=== PATIENT | female | born 1980 | race Caucasian/White ===

== ENCOUNTER 2016-05-11 15:54 | Emergency (ER) | payer MEDICAID ==
[~2016-05-11] VITALS: Ht 152.4 cm; Wt 75.0 kg
[~2016-05-11 15:54] MED LIST: AMOX500C PO
[2016-05-11 15:58] VITALS: BP 139/86; PULSE 101; RESP 16; TEMP 98.7; O2SAT 100
--- NOTE | 2016-05-11 16:09 | PD ---
HPI Chief Complaint: Complaint Time Seen by Provider: 16:07 Travel History International Travel<30 days: No Contact w/Intl Traveler<30days: No Traveled to known affect area: No History of Present Illness HPI 36-year-old female presents to the emergency department for evaluation of urinary frequency, urgency, dysuria for one week. She denies any fevers or chills. No nausea or vomiting. She does report some low back pain. She denies any abnormal vaginal discharge. She has no chronic medical problems and takes no medications. She denies . She reports history of 3 and cholecystectomy. PFSH Past Medical History Arthritis: No Blood Disorders: No Anxiety: No Depression: No Cancer: No Cardiovascular Problems: No Cerebrovascular Accident: No Diabetes: No Diminished Hearing: No Endocrine: No Gastrointestinal Disorders: Yes Genitourinary: Yes (frequent uti) Immune Disorder: No Implanted Vascular Access Dvce: No Musculoskeletal: No Neurologic: No Psychiatric: No Reproductive: No Respiratory: No Immunizations Current: Yes Migraines: Yes Thyroid Disease: No ?: Not LMP: 04/23/16 : 6 Para: 3 Miscarriage: 2 : 1 Ovarian Cysts: Yes Tubal Ligation: Yes (RT TUBE ONLY/LEFT NON EXISTANT) Past Surgical History AICD: No Arteriovenous Shunt: No Cardiac Surgery: No Section: Yes (X3) Cholecystectomy: Yes Ear Surgery: No Endocrine Surgery: No Eye Surgery: No Genitourinary Surgery: No Gynecologic Surgery: Yes (3 C-- SECTIONS) Insulin Pump: No Joint Replacement: No Neurologic Surgery: No Oral Surgery: No Thoracic Surgery: No Other Surgery: Yes ( TUBAL GALLBLADDER) Social History Alcohol Use: Yes (social) Tobacco Use: Yes (04/23 ppd) Substance Use: No Allergies-Medications (Allergen,Severity, Reaction): Coded Allergies: No Known Allergies (Unverified , 05/11/16) Reported Meds & Prescriptions Reported Meds & Active Scripts Active No Active Prescriptions or Reported Medications Review of Systems Except as stated in HPI: all other systems reviewed are Neg Physical Exam Narrative GENERAL: Well-developed well-nourished female patient, ambulatory. Afebrile. SKIN: Warm and dry. HEAD: Normocephalic. Atraumatic. EYES: No scleral icterus. No injection or drainage. NECK: Supple, trachea midline. No JVD or lymphadenopathy. CARDIOVASCULAR: Regular rate and rhythm without murmurs, gallops, or rubs. RESPIRATORY: Breath sounds equal bilaterally. No accessory muscle use. Lungs sounds clear to auscultation. GASTROINTESTINAL: Abdomen soft, non-tender, nondistended. MUSCULOSKELETAL: No cyanosis, or edema. BACK: Nontender without obvious deformity. No CVA tenderness. Data Data Last Documented VS Vital Signs Date Time Temp Pulse Resp B/P Pulse Ox O2 Delivery O2 Flow Rate FiO2 05/11/16 15:58 98.7 101 16 139/86 100 Orders Urinalysis - C+S If Indicated (05/11/16 15:58) Ed Urine Pregnancytest Poc (05/11/16 15:58) Urine Culture (05/11/16 16:05) Labs Laboratory Tests Test 05/11/16 16:05 Urine Collection Type CLEAN CATCH Urine Color YELLOW Urine Turbidity MOD Urine pH 6.0 Urine Specific [place] 1.019 Urine Protein TRACE mg/dL Urine Glucose (UA) NEG mg/dL Urine Ketones NEG mg/dL Urine Occult Blood SMALL Urine Nitrite NEG Urine Bilirubin NEG Urine Leukocyte Esterase LARGE Urine RBC 20-24 /hpf Urine WBC INNUM /hpf Urine WBC Clumps MANY Urine Squamous Epithelial > 8 /hpf Cells Urine Bacteria FEW /hpf Microscopic Urinalysis Comment CULTURE INDICATED Urine Collection Time 16:05 [facility] Medical Decision Making Medical Screen Exam Complete: Yes Emergency Medical Condition: Yes Medical Record Reviewed: Yes Differential Diagnosis UTI versus how nephritis versus dysuria Narrative Course 36-year-old female presents to the emergency department for evaluation of possible urinary tract infection. Urine test is negative. UA is ordered and pending. UA shows small occult blood, large leukocyte esterase, innumerable WBCs, many WBC clumps. Patient will be discharged prescription for Macrobid and Pyridium. She is encouraged to follow up with her primary care physician. Patient verbalized agreement and understanding. Diagnosis Primary Impression: Urinary tract infection Qualified Code: N30.01 - Acute cystitis with hematuria Referrals: Primary Care Physician call for appointment Patient Instructions: General Instructions, Urinary Tract Infection in Women ( ED) Additional Instructions: Drink plenty of water. Take Macrobid as directed until gone. Take Pyridium as directed as needed. Follow-up with your primary care physician. Return to the emergency department for any acute worsening of symptoms. Med/Other Pt SpecificInfo: Prescription(s) given Scripts Phenazopyridine (Pyridium)200 Mg [id number] Mg PO Q8H PRN (DYSURIA) 12 Days Ref 0 Prov:Kenyatta Hawkins 05/11/16 Nitrofurantoin Monohydrate Macrocrystals (Macrobid)100 Mg [id number] Mg PO BID 7 Days Ref 0 Prov:Kenyatta Hawkins 05/11/16 Disposition: 01 DISCHARGE HOME Condition: Stable Kenyatta Hawkins May 11, 2016 16:09
[2016-05-11 16:11] LABS: BLOOD, URINE SMALL (NEG); GLUCOSE,URINE NEG (NEG); KETONE, URINE NEG (NEG); NITRITE,URINE NEG (NEG)
[2016-05-11 16:17] LABS: METHOD OF COLLECTION CLEAN CATCH; URINE COLOR YELLOW (YELLW/STRAW)
[2016-05-11 16:18] LABS: BACTERIA, URINE FEW /hpf; SQUAMOUS EPITHELIAL CELL URINE > 8 /hpf (0-5); WBC, URINE INNUM /hpf (0-5)
[2016-05-11 16:19] LABS: COMMENT (UR) CULTURE INDICATED; CULTURE IF INDICATED CULTURE INDICATED
[2016-05-11] MEDS ORDERED: MACR100C2 PO (16:23)
[2016-05-11] MEDS ORDERED: PYRI200T4 PO (16:23)
== END 2016-05-11 16:30 | disposition home or self-care (01) ==
LOC: PHEFT 15:54
DX: N39.0 Urinary tract infection, site not specified (principal); B96.20 Unspecified Escherichia coli [E. coli] as the cause of diseases classified elsewhere
CPT/HCPCS: 81001; 84703; 87077; 87086; 87186; 99283

== ENCOUNTER 2016-05-19 17:15 | Emergency (ER) | payer MEDICAID ==
[~2016-05-19] VITALS: Ht 152.4 cm; Wt 76.4 kg
[~2016-05-19 17:15] MED LIST changes: -AMOX500C PO; +MACR100C2 PO; +PYRI200T4 PO
[2016-05-19 17:19] VITALS: BP 131/85; PULSE 123; RESP 16; TEMP 97.3; O2SAT 97
[2016-05-19] MEDS ORDERED: KETOROLAC TROMETHAMINE 30 MG/ML (IVP) VIAL IV PUSH ONE (17:45)
[2016-05-19] MEDS ORDERED: AMPICILLIN-SULBACTAM INJ 1,500 MG in SODIUM CHLORIDE 0.9% INJ 100 ML IV ONE (17:45)
[2016-05-19] MEDS ORDERED: SODIUM CHLORIDE 0.9% FLUSH 5 ML FLUSH IVF PRN (17:45)
[2016-05-19] MEDS ORDERED: DEXAMETHASONE SOD PHOS 4 MG/ML VIAL IV ONE (17:45)
--- NOTE | 2016-05-19 17:54 | PD ---
HPI Chief Complaint: ENT Complaint Time Seen by Provider: 17:47 Travel History International Travel<30 days: No Contact w/Intl Traveler<30days: No Traveled to known affect area: No History of Present Illness HPI 36-year-old female presents to the emergency room for evaluation of severe sore throat for the past few days that worsened last night. Patient states it became difficult to swallow secondary to pain and swelling last night. She has history of strep throat but states this feels worse. Pain is more severe on the right and she has associated right sided neck swelling. She reports a fever of 101 3 days ago. She has been taking 800 mg ibuprofen "around-the- clock" for the past 3 days and has not had recurrence of fever. She has nausea and decreased appetite but no vomiting. Reports very mild associated cough. Denies any other upper respiratory symptoms. No chronic medical conditions or daily medications. Denies possibility of STD. PFSH Past Medical History Arthritis: No Blood Disorders: No Anxiety: No Depression: No Cancer: No Cardiovascular Problems: No Cerebrovascular Accident: No Diabetes: No Diminished Hearing: No Endocrine: No Gastrointestinal Disorders: Yes Genitourinary: Yes (frequent uti) Immune Disorder: No Implanted Vascular Access Dvce: No Musculoskeletal: No Neurologic: No Psychiatric: No Reproductive: No Respiratory: No Immunizations Current: Yes Migraines: Yes Thyroid Disease: No Tetanus Vaccination: > 5 Years Influenza Vaccination: No ?: Not LMP: 04/23/16 : 6 Para: 3 Miscarriage: 2 : 1 Ovarian Cysts: Yes Tubal Ligation: Yes (RT TUBE ONLY/LEFT NON EXISTANT) Past Surgical History AICD: No Arteriovenous Shunt: No Cardiac Surgery: No Section: Yes (X3) Cholecystectomy: Yes Ear Surgery: No Endocrine Surgery: No Eye Surgery: No Genitourinary Surgery: No Gynecologic Surgery: Yes (3 C-- SECTIONS) Insulin Pump: No Joint Replacement: No Neurologic Surgery: No Oral Surgery: No Thoracic Surgery: No Other Surgery: Yes ( TUBAL GALLBLADDER) Social History Alcohol Use: Yes (social) Tobacco Use: Yes (/ ppd) Substance Use: No Allergies-Medications (Allergen,Severity, Reaction): Coded Allergies: No Known Allergies (Unverified , 05/19/16) Reported Meds & Prescriptions Reported Meds & Active Scripts Active Hydrocodone-Acetaminophen Liq 7.5-325 Mg/15 Ml Soln 15 Ml PO Q6H PRN Augmentin (Amoxicillin-Clavulanate) 875-125 mg Tab 875 Mg PO BID 10 Days not for use in CrCl <30 ml/min. Medrol Dosepak (Methylprednisolone) 4 Mg Dspk 4 Mg PO DIRECTED Per Pharmacist direction Pyridium (Phenazopyridine HCl) 200 Mg Tab 200 Mg PO Q8H PRN 12 Days Macrobid (Nitrofurantoin Monoh/Nitrofur Macro) 100 Mg Cap 100 Mg PO BID 7 Days Review of Systems Except as stated in HPI: all other systems reviewed are Neg Physical Exam Narrative GENERAL: Well-nourished, well-developed female in no acute distress. Afebrile. Ambulatory. SKIN: Warm and dry. HEAD: Normocephalic. EYES: No scleral icterus. No injection or drainage. NECK: Supple, trachea midline. No JVD or lymphadenopathy. ENT: Mucosa pink and moist. Mild to moderate erythema without exudates. Right tonsil is markedly more swollen than left; 3+ as compared to 1+. No uvular edema. No uvular, palatal, or tonsillar deviation. Airway patent. Data Data Last Documented VS Vital Signs Date Time Temp Pulse Resp B/P Pulse Ox O2 Delivery O2 Flow Rate FiO2 05/19/16 20:17 98 18 131/71 98 Room Air 05/19/16 17:19 97.3 Orders Basic Metabolic Panel (Bmp) (05/19/16 17:39) Complete Blood Count With Diff (05/19/16 17:39) Group A Rapid Strep Screen (05/19/16 17:39) Dexamethasone Inj (Decadron Inj) (05/19/16 17:45) Sodium Chloride 0.9% Flush (Ns Flush) (05/19/16 17:45) Ed Urine Pregnancytest Poc (05/19/16 17:39) Ampicillin-Sulbactam Inj (Unasyn Inj) (05/19/16 17:45) Ketorolac Inj (Toradol Inj) (05/19/16 17:45) Ct Soft Tiss Neck W Iv Cont (05/19/16 17:50) Blood Culture (05/19/16 18:09) Strep Culture (Group A) (05/19/16 17:50) Lactic Acid (1/29/17 18:16) Morphine Inj (Morphine Inj) (05/19/16 18:45) Acetamin-Hydrocod 325-7.5 Liq (Hycet 325 (05/19/16 20:00) Mandatory Outpatient Referral (05/19/16 20:20) Labs Laboratory Tests Test 05/19/16 05/19/16 17:50 18:15 White Blood Count 17.0 TH/MM3 Red Blood Count 4.18 MIL/MM3 Hemoglobin 13.2 GM/DL Hematocrit 38.6 % Mean Corpuscular Volume 92.2 FL Mean Corpuscular Hemoglobin 31.5 PG Mean Corpuscular Hemoglobin 34.1 % Concent Red Cell Distribution Width 12.2 % Platelet Count 319 TH/MM3 Mean Platelet Volume 7.6 FL Neutrophils (%) (Auto) 88.2 % Lymphocytes (%) (Auto) 6.7 % Monocytes (%) (Auto) 4.3 % Eosinophils (%) (Auto) 0.6 % Basophils (%) (Auto) 0.2 % Neutrophils # (Auto) 15.1 TH/MM3 Lymphocytes # (Auto) 1.1 TH/MM3 Monocytes # (Auto) 0.7 TH/MM3 Eosinophils # (Auto) 0.1 TH/MM3 Basophils # (Auto) 0.0 TH/MM3 CBC Comment DIFF FINAL Differential Comment Sodium Level 141 MEQ/L Potassium Level 3.6 MEQ/L Chloride Level 106 MEQ/L Carbon Dioxide Level 25.0 MEQ/L Anion Gap 10 MEQ/L Blood Urea Nitrogen 9 MG/DL Creatinine 0.60 MG/DL Estimat Glomerular Filtration 114 ML/MIN Rate Random Glucose 84 MG/DL Calcium Level 8.4 MG/DL Lactic Acid Level 0.8 mmol/L [facility] Medical Decision Making Medical Screen Exam Complete: Yes Emergency Medical Condition: Yes Medical Record Reviewed: Yes Differential Diagnosis Strep throat versus viral pharyngitis versus peritonsillar abscess Narrative Course 36-year-old female presents to the emergency room for evaluation of severe sore throat for the past day. Patient reports associated right-sided neck pain and edema. Physical exam reveals mild to moderate erythema without exudates. Right tonsil is markedly more swollen than left; 3+ as compared to 1+. No uvular or tonsillar deviation. Airway patent. Vital signs stable. She is handling her secretions and lying back without difficulty breathing. IV access established. Rapid strep is negative. CBC shows white count 17,000. BMP is unremarkable. Lactic acid is 0.8. Based on heart rate and elevated white count , patient meets sepsis criteria. Lactic acid and blood cultures drawn prior to onset of antibiotics. Patient given IV Toradol, Decadron, and Unasyn. Patient reports no pain relief from Toradol or Decadron. She was then given morphine. Morphine began to wear off, patient was given liquid Lortab. Her heart rate improved from 120s to 90s which is normal/baseline for patient according to EMR. CT of the neck shows a large mass with differential including primary oral pharyngeal malignancy, lymphoma, abscess, or other inflammatory/infectious process. I spoke to the on-call ENT, Dr. Carter, who was made aware of patient' s history and physical exam. He stated if she appears well, she can be discharged with prescriptions for Medrol Dosepak, Augmentin, and follow-up in his office this week. Patient was discharged with those prescriptions and liquid Lortab. Given his office information and encouraged to make an appointment tomorrow morning. Patient states she has Medicaid and believes she will have difficulty obtaining appointments a mandatory outpatient referral was placed. He understands and agrees to plan. Sepsis Criteria SIRS Criteria (2 or more): Heart rate over 90, WBC > 47868, < 4000 or > 10% bands Sepsis Criteria (SIRS+source): Infect source susp/known Diagnosis Primary Impression: Peritonsillar abscess Referrals: Yogesh Carter MD Patient Instructions: General Instructions, Peritonsillar Abscess (ED) Additional Instructions: Rest and drink plenty of fluids. Take Medrol Dosepak as directed, until gone. Take Augmentin as directed, until gone. Take Lortab with food as directed, as needed for pain. To not drink alcohol or travel taking this medication. Follow-up with Dr. Carter. Return to the emergency room for worsening symptoms. Med/Other Pt SpecificInfo: Prescription(s) given Scripts Hydrocodone-Acetaminophen Liq 7.5-325 Mg/15 Ml Soln15 Ml PO Q6H PRN (PAIN) #225 ML Ref 0 Prov:Lindsey Rick MD 05/19/16 Amoxicillin-Clavulanate (Augmentin)875-125 mg [id number] Mg PO BID 10 Days Ref 0 not for use in CrCl <30 ml/min. Prov:Desiree Francis DO 05/19/16 Methylprednisolone Dosepak (Medrol Dosepak)4 Mg Dspk4 Mg PO DIRECTED #1 DSPK Ref 0 Per Pharmacist direction Prov:Desiree Francis DO 05/19/16 Disposition: 01 DISCHARGE HOME Condition: Stable Esperanza Monroe May 19, 2016 17:53
[2016-05-19 18:02] LABS: AUTOMATED NEUTROPHIL # 15.1 TH/MM3 (1.8-7.7); BASOPHIL % 0.2 % (0.0-2.0); EOSINOPHIL # 0.1 TH/MM3 (0-0.4); EOSINOPHIL % 0.6 % (0.0-4.0); HEMATOCRIT 38.6 % (35.0-46.0); LYMPH % 6.7 % (9.0-44.0); LYMPHOCYTE # 1.1 TH/MM3 (1.0-4.8); MEAN CELL VOLUME 92.2 FL (80.0-100.0); MEAN CORPUSCULAR HEMOGLOBIN 31.5 PG (27.0-34.0); MEAN CORPUSCULAR HGB CONC 34.1 % (32.0-36.0); MONO % 4.3 % (0.0-8.0); NEUT % 88.2 % (16.0-70.0); PLATELET COUNT 319 TH/MM3 (150-450); RED BLOOD COUNT 4.18 MIL/MM3 (4.00-5.30); RED CELL DISTRIBUTION WIDTH 12.2 % (11.6-17.2)
[2016-05-19 18:03] LABS: HEMO FLAGS DIFF FINAL
[2016-05-19 18:09] LABS: POTASSIUM 3.6 MEQ/L (3.5-5.1)
[2016-05-19 18:26] VITALS: BP 120/78; PULSE 99; RESP 18; O2SAT 99
[2016-05-19] MEDS ORDERED: MORPHINE SULFATE 4 MG/ML INJ IV PUSH ONE (18:45)
[2016-05-19] MEDS ORDERED: IOHEXOL 350 MG/ML 10 ML VIAL (for RAD DIAG) IV ONE (18:53)
[2016-05-19 19:15] VITALS: BP 105/57; PULSE 93; RESP 18; O2SAT 98
--- NOTE | 2016-05-19 19:27 | RADHPO ---
EXAM DATE/TIME: 05/19/2016 18:53 [facility] COMPARISON: No previous studies available for comparison. INDICATIONS : Right sided pain and swelling for three days IV CONTRAST: 70 cc Omnipaque 350 (iohexol) IV RADIATION DOSE: 14.30 CTDIvol (mGy) MEDICAL HISTORY : None SURGICAL HISTORY : Tubal ligation. ENCOUNTER: Initial ACUITY: 3 days PAIN SCALE: 6/10 LOCATION: Right neck TECHNIQUE: Volumetric scanning of the neck was performed. Using automated exposure control and adjustment of th e mA and/or kV according to patient size, radiation dose was kept as low as reasonably achievable to obtain optimal diagnostic quality images. FINDINGS: Examination is abnormal demonstrating a large mass involving the right nasopharynx and oropharynx, la rgest at the level of the tonsillar fossa/base of tongue measuring in access of 3.2 cm in oblique dim ension. Superior extent to the high lateral nasopharyngeal wall measures up to 2.2 cm in width. Inf eriorly, there is asymmetric thickening of the lateral hypopharyngeal wall down to the level of the v ocal cords. There is a central area of hypodensity at the level of the tonsillar fossa which measure s 1.4 cm. No internal gas is seen. There is a enlarged homogeneously enhancing mass/node at the level of the right angle of the mandible in the jugular chain measuring 2.1 cm. There are also multiple posterior triangle nodes, larger on the right than on the left with the largest right posterior triangle node measuring 1.0 cm and the la rgest on the left measuring 0.7 cm. Possible enlarged left jugular node measures 1.2 cm. The thyroid gland has an abnormal appearance with an irregular area of decreased density in the anter ior mid lobe on the right side measuring 1.2 cm in length and 5 mm in width. Homogeneous enhancement of the left lobe of the thyroid and in the isthmus. There is a rounded soft tissue density within the right maxillary sinus measuring 2.7 cm, possibly re presenting retention cyst or polyp. Examination was extended into the upper chest and no focal opacities seen in either pulmonary apex. Wide windows for bony detail demonstrate the osseous structures to be grossly intact. CONCLUSION: Large mass on the right side extending from nasopharynx to hypopharynx, largest at the level of the t onsillar fossa containing an inhomogeneous pattern of enhancement. The maximum axial dimension is 3. 2 cm, but the superior/inferior dimension would be greater than that. There is also at least one enl arged right jugular node and multiple bilateral prominent posterior triangle nodes. Differential con siderations would include a primary oral pharyngeal malignancy, lymphoma, abscess, and other infectio us/inflammatory process. Additional findings include polyp or cyst in the right maxillary sinus and irregular shaped mass in t he right lobe of the thyroid. Андрей Rust MD on May 19, 2016 at 19:16 Board Certified Radiologist. This report was verified electronically.
[2016-05-19] MEDS ORDERED: ACETAMINOPHEN 325MG/HYDROcodone 7.5MG/15ML UDC PO ONE (20:00)
[2016-05-19] MEDS ORDERED: MEDR4PAK PO (20:03)
[2016-05-19] MEDS ORDERED: AUGM875T PO (20:03)
[2016-05-19] MEDS ORDERED: HYDR1SOL3 PO (20:05)
[2016-05-19 20:17] VITALS: BP 131/71; PULSE 98; RESP 18; O2SAT 98
[2016-05-19 20:44] VITALS: RESP 18
== END 2016-05-19 20:45 | disposition home or self-care (01) ==
LOC: PHEFT 17:15
DX: J36 Peritonsillar abscess (principal); F17.200 Nicotine dependence, unspecified, uncomplicated
CPT/HCPCS: 70491; 80048; 83605; 84703; 85025; 87040; 87081; 87880; 96365; 96375; 99284; J0295; J1100; J1885; J2270; Q9967

== ENCOUNTER 2016-05-26 04:46 | Emergency (ER) | payer MEDICAID ==
[~2016-05-26] VITALS: Ht 152.4 cm; Wt 74.0 kg
[~2016-05-26 04:46] MED LIST changes: +AUGM875T PO; +HYDR1SOL3 PO; +MEDR4PAK PO
[2016-05-26 04:50] VITALS: BP 132/86; PULSE 82; RESP 20; TEMP 97.4; O2SAT 100
[2016-05-26] MEDS ORDERED: SODIUM CHLOR 0.9% 1000 ML INJ 1,000 ML IV SCH ×2 (05:17→05:30)
--- NOTE | 2016-05-26 05:17 | PD ---
HPI Chief Complaint: GI Complaint Time Seen by Provider: 05:05 Travel History International Travel<30 days: No Contact w/Intl Traveler<30days: No Traveled to known affect area: No History of Present Illness HPI The patient is a 36-year-old female, frequent visitor to emergency department, who complains of nausea, vomiting and diarrhea and epigastric pain since 9 PM tonight. She has already had a cholecystectomy as well as the tubal ligation. She still has her appendix. She denies any fever. She denies any blood in the stool or vomitus. He has not undergone any recent foreign travel and denies well water ingestion, recent antibiotics, exposure to anyone with similar symptoms or history of bowel problems like regional enteritis or ulcerative colitis. The patient was apparently admitted on 2014 for a similar episode in which she had some dilatation of the jejunum but this resolved spontaneously. She states it feels similar to that episode. PFSH Past Medical History Arthritis: No Blood Disorders: No Anxiety: No Depression: No Cancer: No Cardiovascular Problems: No Cerebrovascular Accident: No Diabetes: No Diminished Hearing: No Endocrine: No Gastrointestinal Disorders: Yes Genitourinary: Yes (frequent uti) Immune Disorder: No Implanted Vascular Access Dvce: No Musculoskeletal: No Neurologic: No Psychiatric: No Reproductive: No Respiratory: No Immunizations Current: Yes Migraines: Yes Thyroid Disease: No Influenza Vaccination: No ?: Not LMP: May 21 : 6 Para: 3 Miscarriage: 2 : 1 Ovarian Cysts: Yes Tubal Ligation: Yes (RT TUBE ONLY/LEFT NON EXISTANT) Past Surgical History AICD: No Arteriovenous Shunt: No Cardiac Surgery: No Section: Yes (X3) Cholecystectomy: Yes Ear Surgery: No Endocrine Surgery: No Eye Surgery: No Genitourinary Surgery: No Gynecologic Surgery: Yes (3 C-- SECTIONS) Insulin Pump: No Joint Replacement: No Neurologic Surgery: No Oral Surgery: No Thoracic Surgery: No Other Surgery: Yes ( TUBAL GALLBLADDER) Social History Alcohol Use: Yes (social) Tobacco Use: Yes (1/3 ppd) Substance Use: No Allergies-Medications (Allergen,Severity, Reaction): Coded Allergies: No Known Allergies (Unverified , 05/26/16) Reported Meds & Prescriptions Reported Meds & Active Scripts Active No Active Prescriptions or Reported Medications Review of Systems Except as stated in HPI: all other systems reviewed are Neg Physical Exam Narrative GENERAL: The patient is alert, oriented 3, moderately dehydrated and moderate apparent distress with her midline epigastric pain. Her vital signs are normal. SKIN: Warm and dry. HEAD: Atraumatic. Normocephalic. EYES: Pupils equal and round. No scleral icterus. No injection or drainage. ENT: No nasal bleeding or discharge. Mucous membranes pink and moist. NECK: Trachea midline. No JVD. CARDIOVASCULAR: Regular rate and rhythm. No murmur appreciated. RESPIRATORY: No accessory muscle use. Clear to auscultation. Breath sounds equal bilaterally. GASTROINTESTINAL: Abdomen soft, with tenderness to direct palpation in the midline epigastrium, nondistended. Hepatic and splenic margins not palpable. No guarding or rebound is present. MUSCULOSKELETAL: No obvious deformities. No clubbing. No cyanosis. No edema. NEUROLOGICAL: Awake and alert. No obvious cranial nerve deficits. Motor grossly within normal limits. Normal speech. PSYCHIATRIC: Appropriate mood and affect; insight and judgment normal. Data Data Last Documented VS Vital Signs Date Time Temp Pulse Resp B/P Pulse Ox O2 Delivery O2 Flow Rate FiO2 05/26/16 06:15 82 16 126/69 98 Room Air 05/26/16 04:50 97.4 Orders Complete Blood Count With Diff (05/26/16 05:17) Comprehensive Metabolic Panel (05/26/16 05:17) Lipase (05/26/16 05:17) Urinalysis - C+S If Indicated (05/26/16 05:17) Iv Access Insert/Monitor (05/26/16 05:17) Ecg Monitoring (05/26/16 05:17) Oximetry (05/26/16 05:17) Pantoprazole Inj (Protonix Inj) (05/26/16 05:30) Sodium Chlor 0.9% 1000 Ml Inj (Ns 1000 M (05/26/16 05:17) Sodium Chloride 0.9% Flush (Ns Flush) (05/26/16 05:30) Famotidine Inj (Pepcid Inj) (05/26/16 05:30) Al-Mag Hy-Si 40-40-4 Mg/Ml Liq (Mag-Al P (05/26/16 05:30) Lidocaine 2% Viscous (Xylocaine 2% Visco (05/26/16 05:30) Ondansetron Inj (Zofran Inj) (2/5/17 05:30) Sodium Chlor 0.9% 1000 Ml Inj (Ns 1000 M (05/26/16 05:30) Ketorolac Inj (Toradol Inj) (05/26/16 05:45) Ondansetron Inj (Zofran Inj) (05/26/16 05:45) Ct Abd/Pel W Iv Contrast(Rout) (05/26/16 05:56) Morphine Inj (Morphine Inj) (05/26/16 06:00) Sodium Chloride 0.9% Flush (Ns Flush) (05/26/16 06:00) Beta Hcg (Quant/Titer) (05/26/16 05:30) Metoclopramide Inj (Reglan Inj) (05/26/16 06:30) Labs Laboratory Tests Test 05/26/16 05/26/16 05:30 06:00 White Blood Count 29.1 TH/MM3 Red Blood Count 4.80 MIL/MM3 Hemoglobin 15.1 GM/DL Hematocrit 44.2 % Mean Corpuscular Volume 91.9 FL Mean Corpuscular Hemoglobin 31.3 PG Mean Corpuscular Hemoglobin 34.1 % Concent Red Cell Distribution Width 12.4 % Platelet Count 590 TH/MM3 Mean Platelet Volume 7.9 FL Neutrophils (%) (Auto) 77.4 % Lymphocytes (%) (Auto) 17.0 % Monocytes (%) (Auto) 4.5 % Eosinophils (%) (Auto) 0.7 % Basophils (%) (Auto) 0.4 % Neutrophils # (Auto) 22.6 TH/MM3 Lymphocytes # (Auto) 4.9 TH/MM3 Monocytes # (Auto) 1.3 TH/MM3 Eosinophils # (Auto) 0.2 TH/MM3 Basophils # (Auto) 0.1 TH/MM3 CBC Comment DIFF FINAL Differential Comment Sodium Level 143 MEQ/L Potassium Level 3.1 MEQ/L Chloride Level 105 MEQ/L Carbon Dioxide Level 27.0 MEQ/L Anion Gap 11 MEQ/L Blood Urea Nitrogen 13 MG/DL Creatinine 0.77 MG/DL Estimat Glomerular Filtration 86 ML/MIN Rate Random Glucose 97 MG/DL Calcium Level 9.1 MG/DL Total Bilirubin 0.4 MG/DL Aspartate Amino Transf 9 U/L (AST/SGOT) Alanine Aminotransferase 18 U/L (ALT/SGPT) Alkaline Phosphatase 70 U/L Total Protein 8.6 GM/DL Albumin 3.9 GM/DL Lipase 111 U/L Human Chorionic Gonadotropin, LESS THAN 1 Quant MIU/ML Urine Collection Type VOIDED Urine Color YELLOW Urine Turbidity SLIGHT Urine pH 6.0 Urine Specific [place] 1.026 Urine Protein 30 mg/dL Urine Glucose (UA) NEG mg/dL Urine Ketones NEG mg/dL Urine Occult Blood LARGE Urine Nitrite NEG Urine Bilirubin NEG Urine Leukocyte Esterase NEG Urine WBC 0-2 /hpf Urine Squamous Epithelial >8 /hpf Cells Urine Amorphous Sediment FEW Urine Bacteria FEW /hpf Urine Mucus MOD /lpf Microscopic Urinalysis Comment CULT NOT INDICATED MDM Medical Decision Making Medical Screen Exam Complete: Yes Emergency Medical Condition: Yes Medical Record Reviewed: Yes Differential Diagnosis Viral gastroenteritis, gastritis, dehydration, electrolyte disorder, renal insufficiency, hypo-/hyperglycemia Narrative Course The patient continued to vomit multiple times despite 8 mg total of Zofran and 10 mg of Reglan IV. She is currently in CAT scan. It is now 0700 and the patient is transferred to Dr. Grajeda. Scripts No Active Prescriptions or Reported Meds Garrick Light MD May 26, 2016 05:16
[2016-05-26] MEDS ORDERED: ONDANSETRON HCL 4 MG/2 ML VIAL IV ONE ×2 (05:30→05:45)
[2016-05-26] MEDS ORDERED: SODIUM CHLORIDE 0.9% FLUSH 5 ML FLUSH IVF PRN ×2 (05:30→06:00)
[2016-05-26] MEDS ORDERED: ALUMINUM/MAGNESIUM/SIMETH 30 ML CUP PO ONE (05:30)
[2016-05-26] MEDS ORDERED: LIDOCAINE VISCOUS 2% SOLN 15 ML UDC PO ONE (05:30)
[2016-05-26] MEDS ORDERED: FAMOTIDINE 20 MG/2 ML VIAL IV PUSH ONE (05:30)
[2016-05-26] MEDS ORDERED: PANTOPRAZOLE SODIUM 40 MG VIAL IVP ONE (05:30)
[2016-05-26 05:44] LABS: AUTOMATED NEUTROPHIL # 22.6 TH/MM3 (1.8-7.7); BASOPHIL # 0.1 TH/MM3 (0-0.2); BASOPHIL % 0.4 % (0.0-2.0); EOSINOPHIL # 0.2 TH/MM3 (0-0.4); EOSINOPHIL % 0.7 % (0.0-4.0); HEMATOCRIT 44.2 % (35.0-46.0); LYMPHOCYTE # 4.9 TH/MM3 (1.0-4.8); MEAN CELL VOLUME 91.9 FL (80.0-100.0); MEAN CORPUSCULAR HEMOGLOBIN 31.3 PG (27.0-34.0); MEAN CORPUSCULAR HGB CONC 34.1 % (32.0-36.0); MONO % 4.5 % (0.0-8.0); NEUT % 77.4 % (16.0-70.0); PLATELET COUNT 590 TH/MM3 (150-450); RED CELL DISTRIBUTION WIDTH 12.4 % (11.6-17.2); WHITE BLOOD COUNT 29.1 TH/MM3 (4.0-11.0)
[2016-05-26 05:45] LABS: HEMO FLAGS DIFF FINAL
[2016-05-26] MEDS ORDERED: KETOROLAC TROMETHAMINE 60 MG/2 ML (IM) VIAL IVP ONE (05:45)
[2016-05-26 05:53] LABS: CHLORIDE 105 MEQ/L (98-107); POTASSIUM 3.1 MEQ/L (3.5-5.1); SODIUM (NA) 143 MEQ/L (136-145)
[2016-05-26 05:57] LABS: ANION GAP 11 MEQ/L (5-15); BLOOD UREA NITROGEN 13 MG/DL (7-18)
[2016-05-26 05:59] LABS: ALT (GPT) 18 U/L (10-53); AST (GOT) 9 U/L (15-37)
[2016-05-26 06:00] LABS: GLOMERULAR FILTRATION RATE 86 ML/MIN (>89)
[2016-05-26] MEDS ORDERED: MORPHINE SULFATE 4 MG/ML INJ IV PUSH ONE ×2 (06:00→08:15)
[2016-05-26 06:01] LABS: TOTAL BILIRUBIN ADULT 0.4 MG/DL (0.2-1.0)
[2016-05-26 06:02] LABS: ALKALINE PHOSPHATASE 70 U/L (45-117)
[2016-05-26 06:15] VITALS: BP 126/69; PULSE 82; RESP 16; O2SAT 98
[2016-05-26 06:16] LABS: BLOOD, URINE LARGE (NEG); GLUCOSE,URINE NEG (NEG); KETONE, URINE NEG (NEG); NITRITE,URINE NEG (NEG)
[2016-05-26 06:17] LABS: METHOD OF COLLECTION VOIDED; URINE COLOR YELLOW (YELLW/STRAW)
[2016-05-26 06:22] LABS: BETA HCG QUANT LESS THAN 1 MIU/ML (0-5)
[2016-05-26 06:22] LABS: MUCUS URINE MOD /lpf (OCC)
[2016-05-26 06:23] LABS: BACTERIA, URINE FEW /hpf; COMMENT (UR) CULT NOT INDICATED; CULTURE IF INDICATED CULT NOT INDICATED; SQUAMOUS EPITHELIAL CELL URINE >8 /hpf (0-5); WBC, URINE 0-2 /hpf (0-5)
[2016-05-26] MEDS ORDERED: METOCLOPRAMIDE HCL 10 MG/2 ML VIAL IVS ONE (06:30)
[2016-05-26] MEDS ORDERED: IOHEXOL 350 MG/ML 10 ML VIAL (for RAD DIAG) IV ONE (07:00)
[2016-05-26 07:05] VITALS: BP 111/63; PULSE 77; RESP 16; TEMP 98.8; O2SAT 99
--- NOTE | 2016-05-26 07:21 | RADHPO ---
EXAM DATE/TIME: 05/26/2016 06:46 [place] COMPARISON: CT ABDOMEN & PELVIS W CONTRAST, February 29, 2016, 22:28. INDICATIONS : Epigastric pain with nausea, vomiting, and diarrhea. IV CONTRAST: 96 cc Omnipaque 350 (iohexol) IV ORAL CONTRAST: No oral contrast ingested. RADIATION DOSE: 12.91 CTDIvol (mGy) MEDICAL HISTORY : Ovarian cysts. SURGICAL HISTORY : Tubal ligation. Cholecystectomy. ENCOUNTER: Initial ACUITY: 1 day PAIN SCALE: 7/10 LOCATION: Abdomen. TECHNIQUE: Volumetric scanning of the abdomen and pelvis was performed. Using automated exposure control and ad justment of the mA and/or kV according to patient size, radiation dose was kept as low as reasonably achievable to obtain optimal diagnostic quality images. FINDINGS: LOWER LUNGS: The visualized lower lungs are clear. LIVER: Homogeneous density without lesion. There is no dilation of the biliary tree. No calcified gallston es. SPLEEN: Normal size without lesion. PANCREAS: Within normal limits. KIDNEYS: Normal in size and shape. There is no mass, stone or hydronephrosis. Subcentimeter renal low densiti es are again noted. ADRENAL GLANDS: Within normal limits. VASCULAR: There is no aortic aneurysm. BOWEL/MESENTERY: Mild wall thickening of small bowel loops. No inflammatory changes or abscess. There is no free intra peritoneal air or fluid. ABDOMINAL WALL: Within normal limits. RETROPERITONEUM: There is no lymphadenopathy. BLADDER: No wall thickening or mass. REPRODUCTIVE: Trace pelvic free fluid INGUINAL: There is no lymphadenopathy or hernia. MUSCULOSKELETAL: Within normal limits for patient age. CONCLUSION: 1. Mild wall thickening involving small bowel loops possibly related to an enteritis. No inflammatory changes, abnormal fluid collection or abscess. 2. Status post cholecystectomy. 3. Trace pelvic free fluid likely physiologic. 4. Probable renal cysts. Artemio Meyer MD on May 26, 2016 at 7:17 Board Certified Radiologist. This report was verified electronically.
[2016-05-26] MEDS ORDERED: CIPR500T2 PO (07:59)
[2016-05-26] MEDS ORDERED: TRAM50TA PO (07:59)
[2016-05-26] MEDS ORDERED: METR-1 PO (08:00)
[2016-05-26] MEDS ORDERED: ZOFR4TAB3 SL (08:00)
--- NOTE | 2016-05-26 08:00 | PD ---
Data Data Last Documented VS Vital Signs Date Time Temp Pulse Resp B/P Pulse Ox O2 Delivery O2 Flow Rate FiO2 05/26/16 07:08 16 05/26/16 07:05 98.8 77 111/63 99 Room Air Orders Complete Blood Count With Diff (05/26/16 05:17) Comprehensive Metabolic Panel (05/26/16 05:17) Lipase (05/26/16 05:17) Urinalysis - C+S If Indicated (05/26/16 05:17) Iv Access Insert/Monitor (05/26/16 05:17) Ecg Monitoring (05/26/16 05:17) Oximetry (05/26/16 05:17) Pantoprazole Inj (Protonix Inj) (05/26/16 05:30) Sodium Chlor 0.9% 1000 Ml Inj (Ns 1000 M (05/26/16 05:17) Sodium Chloride 0.9% Flush (Ns Flush) (05/26/16 05:30) Famotidine Inj (Pepcid Inj) (05/26/16 05:30) Al-Mag Hy-Si 40-40-4 Mg/Ml Liq (Mag-Al P (05/26/16 05:30) Lidocaine 2% Viscous (Xylocaine 2% Visco (05/26/16 05:30) Ondansetron Inj (Zofran Inj) (05/26/16 05:30) Sodium Chlor 0.9% 1000 Ml Inj (Ns 1000 M (05/26/16 05:30) Ketorolac Inj (Toradol Inj) (05/26/16 05:45) Ondansetron Inj (Zofran Inj) (05/26/16 05:45) Ct Abd/Pel W Iv Contrast(Rout) (05/26/16 05:56) Morphine Inj (Morphine Inj) (05/26/16 06:00) Sodium Chloride 0.9% Flush (Ns Flush) (05/26/16 06:00) Beta Hcg (Quant/Titer) (05/26/16 05:30) Metoclopramide Inj (Reglan Inj) (05/26/16 06:30) Iohexol 350 Inj (Omnipaque 350 Inj) (05/26/16 07:00) Labs Laboratory Tests Test 2/5/17 2/5/17 05:30 06:00 White Blood Count 29.1 TH/MM3 Red Blood Count 4.80 MIL/MM3 Hemoglobin 15.1 GM/DL Hematocrit 44.2 % Mean Corpuscular Volume 91.9 FL Mean Corpuscular Hemoglobin 31.3 PG Mean Corpuscular Hemoglobin 34.1 % Concent Red Cell Distribution Width 12.4 % Platelet Count 590 TH/MM3 Mean Platelet Volume 7.9 FL Neutrophils (%) (Auto) 77.4 % Lymphocytes (%) (Auto) 17.0 % Monocytes (%) (Auto) 4.5 % Eosinophils (%) (Auto) 0.7 % Basophils (%) (Auto) 0.4 % Neutrophils # (Auto) 22.6 TH/MM3 Lymphocytes # (Auto) 4.9 TH/MM3 Monocytes # (Auto) 1.3 TH/MM3 Eosinophils # (Auto) 0.2 TH/MM3 Basophils # (Auto) 0.1 TH/MM3 CBC Comment DIFF FINAL Differential Comment Sodium Level 143 MEQ/L Potassium Level 3.1 MEQ/L Chloride Level 105 MEQ/L Carbon Dioxide Level 27.0 MEQ/L Anion Gap 11 MEQ/L Blood Urea Nitrogen 13 MG/DL Creatinine 0.77 MG/DL Estimat Glomerular Filtration 86 ML/MIN Rate Random Glucose 97 MG/DL Calcium Level 9.1 MG/DL Total Bilirubin 0.4 MG/DL Aspartate Amino Transf 9 U/L (AST/SGOT) Alanine Aminotransferase 18 U/L (ALT/SGPT) Alkaline Phosphatase 70 U/L Total Protein 8.6 GM/DL Albumin 3.9 GM/DL Lipase 111 U/L Human Chorionic Gonadotropin, LESS THAN 1 Quant MIU/ML Urine Collection Type VOIDED Urine Color YELLOW Urine Turbidity SLIGHT Urine pH 6.0 Urine Specific [place] 1.026 Urine Protein 30 mg/dL Urine Glucose (UA) NEG mg/dL Urine Ketones NEG mg/dL Urine Occult Blood LARGE Urine Nitrite NEG Urine Bilirubin NEG Urine Leukocyte Esterase NEG Urine WBC 0-2 /hpf Urine Squamous Epithelial >8 /hpf Cells Urine Amorphous Sediment FEW Urine Bacteria FEW /hpf Urine Mucus MOD /lpf Microscopic Urinalysis Comment CULT NOT INDICATED MDM Supervised Visit with RADHA: No Narrative Course This is a 36-year-old female who presents to the emergency department with abdominal pain, nausea and vomiting. She has come in with intermittent epigastric abdominal pain multiple times in the past. Back in 2014 she was admitted for nonspecific dilation of her jejunum. Today she has a leukocytosis and on CT scan has evidence of enteritis. She feels much better after hydration , pain control and antiemetics. She wants to go home. I think it's reasonable to discharge the patient with some antibiotics, pain control and antiemetics. I expressed to her how she needs to follow-up with gastroenterology. She's never had an endoscopy or colonoscopy. I suspect she may have undiagnosed Crohn 's disease. She says she's been told this by other physicians in the past. Patient expressed understanding. She'll be discharged home. Diagnosis Primary Impression: Enteritis Patient Instructions: General Instructions Additional Instruction: If you develop severe or worsening abdominal pain, fever>100.4, persistent vomiting or inability to eat or drink return to the emergency department immediately. It's very important that you follow-up with a petroleum production engineer as an outpatient. It's possible that you have an undiagnosed problem in your intestines and you may have Crohn's disease. Med/Other Pt SpecificInfo: Prescription(s) given Scripts Ondansetron Odt (Zofran Odt)4 Mg Tab4 Mg SL Q6HR PRN (Nausea/Vomiting) #15 TAB Prov:Sabrina Grajeda MD 05/26/16 Metronidazole (Flagyl)500 Mg [id number] Mg PO TID 10 Days Prov:Sabrina Grajeda MD 05/26/16 Ciprofloxacin 500 Mg Akt014 Mg PO BID 10 Days Prov:Sabrina Grajeda MD 05/26/16 Tramadol 50 Mg Tab50 Mg PO Q6H PRN (PAIN) #10 TAB Prov:Sabrina Grajeda MD 05/26/16 Disposition: 01 DISCHARGE HOME Condition: Stable Sabrina Grajeda MD May 26, 2016 08:00
[2016-05-26 08:54] VITALS: RESP 16
== END 2016-05-26 09:00 | disposition home or self-care (01) ==
LOC: PHED 04:46
DX: K52.9 Noninfective gastroenteritis and colitis, unspecified (principal); F17.210 Nicotine dependence, cigarettes, uncomplicated
CPT/HCPCS: 74177; 80053; 81001; 83690; 84702; 85025; 96360; 96361; 96374; 96375; 96376; 99284; C9113; J1885; J2270; J2405; J2765; J7030; Q9967

== ENCOUNTER 2016-06-13 11:47 | Emergency (ER) | payer MEDICAID ==
[~2016-06-13] VITALS: Ht 152.4 cm; Wt 86.5 kg
[~2016-06-13 11:47] MED LIST changes: -AUGM875T PO; +CIPR500T2 PO; -HYDR1SOL3 PO; -MACR100C2 PO; -MEDR4PAK PO; +METR-1 PO; -PYRI200T4 PO; +TRAM50TA PO; +ZOFR4TAB3 SL
[2016-06-13 12:20] VITALS: BP 109/70; PULSE 92; RESP 16; TEMP 98.2; O2SAT 98
[2016-06-13] MEDS ORDERED: TRAM50TA PO (12:44)
[2016-06-13] MEDS ORDERED: PENI500T PO (12:44)
[2016-06-13] MEDS ORDERED: NAPR500 PO (12:44)
--- NOTE | 2016-06-13 12:44 | PD ---
HPI Chief Complaint: Oral / Dental Pain or Problem Time Seen by Provider: 12:36 Travel History International Travel<30 days: No Contact w/Intl Traveler<30days: No Traveled to known affect area: No History of Present Illness HPI 36 year-old woman presents emergency department with her daughter who is being seen as a patient as well complaining of right sided dental pain. She has symptoms on and off of the right side of her mouth quite some time. Some worsening past several days. No fevers or chills. No purulent drainage. No other complaints. History Past Medical History Medical History: Denies Significant Hx : 6 Para: 3 Social History Alcohol Use: Yes (social) Tobacco Use: Yes (04/23 ppd) Allergies-Medications (Allergen,Severity, Reaction): Coded Allergies: No Known Allergies (Unverified , 06/13/16) Reported Meds & Prescriptions Reported Meds & Active Scripts Active Zofran Odt (Ondansetron Odt) 4 Mg Tab 4 Mg SL Q6HR PRN Flagyl (Metronidazole) 500 Mg Tab 500 Mg PO TID 10 Days Ciprofloxacin (Ciprofloxacin HCl) 500 Mg Tab 500 Mg PO BID 10 Days Tramadol (Tramadol HCl) 50 Mg Tab 50 Mg PO Q6H PRN Review of Systems Except as stated in HPI: all other systems reviewed are Neg Physical Exam Narrative Gen.: 36 year-old woman, no acute distress. HEENT: Poor dentition. Multiple areas of tenderness to percussion today upper and lower teeth on the right side. No fluctuance. No swelling. No purulent drainage. Data Data Last Documented VS Vital Signs Date Time Temp Pulse Resp B/P Pulse Ox O2 Delivery O2 Flow Rate FiO2 06/13/16 12:20 98.2 92 16 109/70 98 MDM Medical Decision Making Medical Screen Exam Complete: Yes Emergency Medical Condition: Yes Differential Diagnosis Odontalgia, abscess, other Narrative Course Medical decision making This a 36 year-old woman with multiple frequent ED visits, multiple pain prescriptions for the past year, presents with dental pain. No evidence of abscess. Needs outpatient dental follow-up. Diagnosis Primary Impression: Odontalgia Additional Instructions: Take Pen-Vee K as prescribed. Use Naprosyn as needed for pain. Do not combine with other NSAIDs. Use tramadol sparingly as needed for severe pain. Follow-up with a dentist. Med/Other Pt SpecificInfo: Prescription(s) given Scripts Tramadol 50 Mg Tab50 Mg PO Q6H PRN (PAIN) #12 TAB Ref 0 Prov:Kwabena Maria MD 06/13/16 Naproxen (Naprosyn)500 Mg [id number] Mg PO BID PRN (PAIN SCALE 1 TO 10) #20 TAB Prov:Kwabena Maria MD 06/13/16 Penicillin V Potassium 500 Mg [id number] Mg PO Q8H 7 Days Prov:Kwabena Maria MD 06/13/16 Disposition: 01 DISCHARGE HOME Condition: Stable Kwabena Maria MD Jun 13, 2016 12:44
== END 2016-06-13 12:58 | disposition home or self-care (01) ==
LOC: PHED 11:47
DX: K08.89 Other specified disorders of teeth and supporting structures (principal); F17.210 Nicotine dependence, cigarettes, uncomplicated
CPT/HCPCS: 99282

== ENCOUNTER 2016-07-25 20:14 | Emergency (ER) | payer MEDICAID ==
[~2016-07-25] VITALS: Ht 152.4 cm; Wt 75.0 kg
[~2016-07-25 20:14] MED LIST changes: -CIPR500T2 PO; -METR-1 PO; +NAPR500 PO; +PENI500T PO; -ZOFR4TAB3 SL
[2016-07-25 20:16] VITALS: BP 128/77; PULSE 103; RESP 14; TEMP 99.1; O2SAT 99
--- NOTE | 2016-07-25 20:28 | PD ---
HPI Chief Complaint: ENT Complaint Time Seen by Provider: 20:28 Travel History International Travel<30 days: No Contact w/Intl Traveler<30days: No Traveled to known affect area: No PFSH Past Medical History Medical History: Denies Significant Hx Arthritis: No Blood Disorders: No Anxiety: No Depression: No Cancer: No Cardiovascular Problems: No Cerebrovascular Accident: No Diabetes: No Diminished Hearing: No Endocrine: No Gastrointestinal Disorders: Yes Genitourinary: Yes (frequent uti) Immune Disorder: No Implanted Vascular Access Dvce: No Musculoskeletal: No Neurologic: No Psychiatric: No Reproductive: No Respiratory: No Immunizations Current: Yes Migraines: Yes Thyroid Disease: No Tetanus Vaccination: > 5 Years Influenza Vaccination: No ?: Not LMP: 07/23/16 : 6 Para: 3 Miscarriage: 2 : 1 Ovarian Cysts: Yes Tubal Ligation: Yes (RT TUBE ONLY/LEFT NON EXISTANT) Past Surgical History AICD: No Arteriovenous Shunt: No Cardiac Surgery: No Section: Yes (X3) Cholecystectomy: Yes Ear Surgery: No Endocrine Surgery: No Eye Surgery: No Genitourinary Surgery: No Gynecologic Surgery: Yes (3 C-- SECTIONS) Insulin Pump: No Joint Replacement: No Neurologic Surgery: No Oral Surgery: No Thoracic Surgery: No Other Surgery: Yes ( TUBAL GALLBLADDER) Social History Alcohol Use: Yes (social) Tobacco Use: Yes (1/3 ppd) Substance Use: No Allergies-Medications (Allergen,Severity, Reaction): Coded Allergies: No Known Allergies (Unverified , 07/25/16) Reported Meds & Prescriptions Reported Meds & Active Scripts Active Data Data Last Documented VS Vital Signs Date Time Temp Pulse Resp B/P Pulse Ox O2 Delivery O2 Flow Rate FiO2 07/25/16 20:20 16 07/25/16 20:16 99.1 103 128/77 99 Orders ^ Saline Lock (07/25/16 20:42) Ampicillin-Sulbactam Inj (Unasyn Inj) (07/25/16 20:45) Dexamethasone Inj (Decadron Inj) (07/25/16 20:45) Sodium Chlor 0.9% 1000 Ml Inj (Ns 1000 M (07/25/16 20:45) Group A Rapid Strep Screen (07/25/16 20:42) Ed Urine Pregnancytest Poc (07/25/16 20:42) Blood Culture (07/25/16 20:44) Ampicillin-Sulbactam Inj (Unasyn Inj) (07/25/16 21:00) MDM Scripts No Active Prescriptions or Reported Meds Oralia Vang Jul 25, 2016 20:28
[2016-07-25] MEDS ORDERED: AMPICILLIN-SULBACTAM INJ 3 GM VIAL IM ONE (20:45)
[2016-07-25] MEDS ORDERED: SODIUM CHLOR 0.9% 1000 ML INJ 1,000 ML IV ONE (20:45)
[2016-07-25] MEDS ORDERED: DEXAMETHASONE SOD PHOS 4 MG/ML VIAL IV PUSH ONE (20:45)
[2016-07-25] MEDS ORDERED: AMPICILLIN-SULBACTAM INJ 1,500 MG in SODIUM CHLORIDE 0.9% INJ 100 ML IV ONE (21:00)
--- NOTE | 2016-07-25 21:07 | PD ---
HPI Chief Complaint: ENT Complaint Time Seen by Provider: 20:27 Travel History International Travel<30 days: No Contact w/Intl Traveler<30days: No Traveled to known affect area: No History of Present Illness HPI 36-year-old female presents to the emergency department for complaint of sore throat 2 days. Patient states she's had temperature elevation of 100.1F. Patient states that it has worsened over the past 2 days. Patient reports that she has painful swallowing. Patient does not remark on any if difficulty with speaking and denies any change in her voice hoarseness or stridor. Patient denies any sinus pressure drainage earache neck pain chest pain shortness of breath productive cough nausea vomiting abdominal pain flank pain dysuria frequency urgency joint pain swelling or rash. Patient states that in April she had similar symptoms that lasted longer and at that time was diagnosed with that peritonsillar abscess. Patient did receive IV antibiotic and oral antibiotic and did well as an outpatient. Patient was given referral to ENT but did not follow-up due to insurance issues. Patient states that her current pain is 9/10 in intensity. Patient has taken ibuprofen with minimal relief. Patient has no difficulty swallowing solids or liquids and handles oral secretions well. PFSH Past Medical History Narrative Medical Migraine, UTI, tonsillitis, ovarian cyst, tube ligation, , cholecystectomy; alcohol use tobacco use; nursing notes reviewed Medical History: Denies Significant Hx Arthritis: No Blood Disorders: No Anxiety: No Depression: No Cancer: No Cardiovascular Problems: No Cerebrovascular Accident: No Diabetes: No Diminished Hearing: No Endocrine: No Gastrointestinal Disorders: Yes Genitourinary: Yes (frequent uti) Immune Disorder: No Implanted Vascular Access Dvce: No Musculoskeletal: No Neurologic: No Psychiatric: No Reproductive: No Respiratory: No Immunizations Current: Yes Migraines: Yes Thyroid Disease: No Tetanus Vaccination: > 5 Years Influenza Vaccination: No ?: Not LMP: 07/23/16 : 6 Para: 3 Miscarriage: 2 : 1 Ovarian Cysts: Yes Tubal Ligation: Yes (RT TUBE ONLY/LEFT NON EXISTANT) Past Surgical History AICD: No Arteriovenous Shunt: No Cardiac Surgery: No Section: Yes (X3) Cholecystectomy: Yes Ear Surgery: No Endocrine Surgery: No Eye Surgery: No Genitourinary Surgery: No Gynecologic Surgery: Yes (3 C-- SECTIONS) Insulin Pump: No Joint Replacement: No Neurologic Surgery: No Oral Surgery: No Thoracic Surgery: No Other Surgery: Yes ( TUBAL GALLBLADDER) Social History Alcohol Use: Yes (social) Tobacco Use: Yes (1/3 ppd) Substance Use: No Allergies-Medications (Allergen,Severity, Reaction): Coded Allergies: No Known Allergies (Unverified , 07/25/16) Reported Meds & Prescriptions Reported Meds & Active Scripts Active Medrol Dosepak (Methylprednisolone) 4 Mg Dspk 4 Mg PO DIRECTED Per Pharmacist direction Augmentin (Amoxicillin-Clavulanate) 875-125 mg Tab 875 Mg PO BID 10 Days not for use in CrCl <30 ml/min. Reported Hydrocodone-Acetaminophen Liq 7.5-325 Mg/15 Ml Soln 10 Ml PO Q6H PRN Review of Systems Except as stated in HPI: all other systems reviewed are Neg Physical Exam Narrative GENERAL: Well-developed well-nourished female in no acute distress no respiratory distress no hoarseness or stridor SKIN: Warm and dry. HEAD: Normocephalic. EYES: No scleral icterus. No injection or drainage. ENT: Mucous members moist airway is patent uvula is midline mild prominence of the right tonsillar pillar without exudative change few soft palate ulcerations. NECK: Supple, trachea midline. No JVD or lymphadenopathy. CARDIOVASCULAR: Regular rate and rhythm without murmurs, gallops, or rubs. RESPIRATORY: Breath sounds equal bilaterally. No accessory muscle use. GASTROINTESTINAL: Abdomen soft, non-tender, nondistended. MUSCULOSKELETAL: No cyanosis, or edema. BACK: Nontender without obvious deformity. No CVA tenderness. Data Data Last Documented VS Vital Signs Date Time Temp Pulse Resp B/P Pulse Ox O2 Delivery O2 Flow Rate FiO2 07/25/16 22:10 98 16 136/77 98 Room Air 07/25/16 20:16 99.1 Orders ^ Saline Lock (07/25/16 20:42) Ampicillin-Sulbactam Inj (Unasyn Inj) (07/25/16 20:45) Dexamethasone Inj (Decadron Inj) (07/25/16 20:45) Sodium Chlor 0.9% 1000 Ml Inj (Ns 1000 M (07/25/16 20:45) Group A Rapid Strep Screen (07/25/16 20:42) Ed Urine Pregnancytest Poc (07/25/16 20:42) Blood Culture (07/25/16 20:44) Ampicillin-Sulbactam Inj (Unasyn Inj) (07/25/16 21:00) Ketorolac Inj (Toradol Inj) (07/25/16 21:15) Strep Culture (Group A) (07/25/16 20:45) Acetamin-Hydrocod 325-7.5 Liq (Hycet 325 (07/25/16 21:30) MDM Medical Decision Making Medical Screen Exam Complete: Yes Emergency Medical Condition: Yes Medical Record Reviewed: Yes Interpretation(s) rsa: negative Vital Signs Date Time Temp Pulse Resp B/P Pulse Ox O2 Delivery O2 Flow Rate FiO2 07/25/16 20:20 16 07/25/16 20:16 99.1 103 14 128/77 99 Differential Diagnosis Tonsillitis, stomatitis, viral syndrome, sinusitis; also to consider peritonsillar abscess unlikely retropharyngeal abscess Narrative Course Specimen collected for rapid strep and blood cultures; patient administered first dose of antibiotic in the emergency department along with Decadron and Toradol Patient doing well tolerating medications well and otherwise stable for outpatient management at this time there is no indication for imaging studies Diagnosis Primary Impression: Tonsillitis Referrals: Ear / Nose / Throat Specialist as needed Primary Care Physician call for appointment Patient Instructions: General Instructions Departure Forms: Tests/Procedures, Work Release Special Instructions: no work x 1 day Additional Instructions: Increase fluid hydration Monitor temperature every 4 hours with thermometer and take as needed ibuprofen/ Advil/Motrin every 6 hours to 8 hours for fever 100.4 Fahrenheit or greater or acetaminophen/Tylenol every 4 hours for fever 100.4F or greater Complete course of antibiotic as prescribed Complete steroid as prescribed May use pain medication as prescribed as needed for pain greater than 6/10 in intensity No work times one day Return to the emergency department for any concerns or change in condition Med/Other Pt SpecificInfo: Prescription(s) given Scripts Methylprednisolone Dosepak (Medrol Dosepak)4 Mg Dspk4 Mg PO DIRECTED #1 DSPK Ref 0 Per Pharmacist direction Prov:Lindsey Rick MD 07/25/16 Amoxicillin-Clavulanate (Augmentin)875-125 mg Ctd006 Mg PO BID 10 Days Ref 0 not for use in CrCl <30 ml/min. Prov:Lindsey Rick MD 07/25/16 Disposition: 01 DISCHARGE HOME Condition: Stable Lindsey Rick MD Jul 25, 2016 21:07 Lindsey Rick MD Jul 25, 2016 21:07
[2016-07-25] MEDS ORDERED: HYDR1ELX PO (21:14)
[2016-07-25] MEDS ORDERED: MEDR4PAK PO (21:14)
[2016-07-25] MEDS ORDERED: AUGM875T PO (21:14)
[2016-07-25] MEDS ORDERED: KETOROLAC TROMETHAMINE 30 MG/ML (IVP) VIAL IV PUSH ONE (21:15)
[2016-07-25] MEDS ORDERED: ACETAMINOPHEN 325MG/HYDROcodone 7.5MG/15ML UDC PO ONE (21:30)
[2016-07-25 22:10] VITALS: BP 136/77; PULSE 98; RESP 16; O2SAT 98
[2016-07-25] MEDS ORDERED: HYDR1SOL3 PO (23:44)
== END 2016-07-25 22:10 | disposition home or self-care (01) ==
LOC: PHEFT 20:14
DX: J03.90 Acute tonsillitis, unspecified (principal); R50.9 Fever, unspecified; F17.200 Nicotine dependence, unspecified, uncomplicated; Z86.69 Personal history of other diseases of the nervous system and sense organs; Z87.448 Personal history of other diseases of urinary system; Z87.19 Personal history of other diseases of the digestive system; Z87.42 Personal history of other diseases of the female genital tract
CPT/HCPCS: 84703; 87040; 87081; 87880; 96365; 96375; 99283; J0295; J1100; J1885; J7030

== ENCOUNTER 2016-08-08 11:54 | Emergency (ER) | payer MEDICAID ==
[~2016-08-08] VITALS: Ht 152.4 cm; Wt 74.1 kg
[~2016-08-08 11:54] MED LIST changes: +AUGM875T PO; +HYDR1SOL3 PO; +MEDR4PAK PO; -NAPR500 PO; -PENI500T PO; -TRAM50TA PO
[2016-08-08 12:05] VITALS: BP 123/47; PULSE 89; RESP 16; TEMP 98.4; O2SAT 99
[2016-08-08] MEDS ORDERED: TRAM50TA PO (13:00)
[2016-08-08] MEDS ORDERED: NAPR500T PO (13:00)
[2016-08-08] MEDS ORDERED: PENI250T59 PO (13:00)
--- NOTE | 2016-08-08 13:05 | PD ---
HPI Chief Complaint: Oral / Dental Pain or Problem Time Seen by Provider: 13:00 Travel History International Travel<30 days: No Contact w/Intl Traveler<30days: No Traveled to known affect area: No History of Present Illness HPI 36-year-old female presents to the emergency department for evaluation of right- sided dental pain. Patient states that she has poor dentition and has had ongoing dental pain for a while now. Acutely worsened over the past 2 days. States she did call out of work due to the pain. Pain is worst in the right upper dentition but also painful and right lower. Denies fever, chills, nausea , vomiting, difficulty swallowing, facial swelling. Denies , status post tubal ligation. No other complaints. PFSH Past Medical History Arthritis: No Blood Disorders: No Anxiety: No Depression: No Cancer: No Cardiovascular Problems: No Cerebrovascular Accident: No Diabetes: No Diminished Hearing: No Endocrine: No Gastrointestinal Disorders: Yes Genitourinary: Yes (Frequent UTI's) Immune Disorder: No Implanted Vascular Access Dvce: No Musculoskeletal: No Neurologic: No Psychiatric: No Reproductive: No Respiratory: No Immunizations Current: Yes Migraines: Yes Thyroid Disease: No ?: Not : 6 Para: 3 Miscarriage: 2 : 1 Ovarian Cysts: Yes Tubal Ligation: Yes Past Surgical History AICD: No Arteriovenous Shunt: No Cardiac Surgery: No Section: Yes (X's 3 ) Cholecystectomy: Yes Ear Surgery: No Endocrine Surgery: No Eye Surgery: No Genitourinary Surgery: No Gynecologic Surgery: Yes (CS X's 3) Insulin Pump: No Joint Replacement: No Neurologic Surgery: No Oral Surgery: No Thoracic Surgery: No Other Surgery: Yes ( TUBAL GALLBLADDER) Social History Alcohol Use: Yes (Socially) Tobacco Use: Yes (1/2 PPD) Substance Use: No Allergies-Medications (Allergen,Severity, Reaction): Coded Allergies: No Known Allergies (Unverified , 08/08/16) Reported Meds & Prescriptions Reported Meds & Active Scripts Active No Active Prescriptions or Reported Medications Review of Systems Except as stated in HPI: all other systems reviewed are Neg Physical Exam Narrative GENERAL: Well-nourished and well-developed pleasant patient in no acute distress who is nontoxic appearing. SKIN: Warm and dry. HEAD: Normocephalic and atraumatic. No facial swelling. EYES: No injection, drainage, or hyphema noted. PERRLA. EOMI. ENT: No nasal drainage noted. Oropharynx is clear and the TMs are normal with good landmarks. DENTAL: Poor dentition. Multiple dental caries to the right lower and right upper teeth. Erythema of the gingiva of the right upper posterior molars. No abscess formation, discharge or drainage. NECK: Supple and the trachea is midline. No lymphadenopathy is noted throughout the cervical chains. CARDIOVASCULAR: Regular rate and rhythm. RESPIRATORY: Breath sounds are equal bilaterally with no accessory muscle use, wheezing, rhonchi, or crackles. NEUROLOGICAL: Awake, alert, and oriented. Normal speech and gait. Cranial nerves are grossly intact. Data Data Last Documented VS Vital Signs Date Time Temp Pulse Resp B/P Pulse Ox O2 Delivery O2 Flow Rate FiO2 08/08/16 12:05 98.4 89 16 123/47 99 MDM Medical Decision Making Medical Screen Exam Complete: Yes Emergency Medical Condition: Yes Differential Diagnosis Dental pain versus dental infection versus dental caries versus gingivitis Narrative Course 36-year-old female presents to the emergency department for evaluation of dental pain. Patient is afebrile, vital signs are stable. She has a history of ongoing dental pain and poor dentition. She needs outpatient follow-up with a dentist. We discussed this and she is aware that she needs to follow-up but has difficulty due to insurance problems. We'll prescribe her penicillin and pain medication. Diagnosis Primary Impression: Odontalgia Referrals: Dentist Patient Instructions: Dental Caries (ED), General Instructions Additional Instructions: Take medications as prescribed with food and a full glass of water. Follow-up with a Dentist. Return to the ED for any acute worsening of symptoms. Med/Other Pt SpecificInfo: Prescription(s) given Scripts Naproxen 500 Mg [id number] Mg PO BID 7 Days Ref 0 Prov:Jairo Hernandez MD 08/08/16 Tramadol 50 Mg Tab50 Mg PO Q6H PRN (PAIN) #12 TAB Ref 0 Prov:Jairo Hernandez MD 08/08/16 Penicillin V Potassium (Penicillin Vk)250 Mg [id number] Mg PO Q8H 10 Days Ref 0 Prov:Jairo Hernandez MD 08/08/16 Disposition: 01 DISCHARGE HOME Condition: Stable Lita Graf Aug 08, 2016 13:05
== END 2016-08-08 13:18 | disposition home or self-care (01) ==
LOC: PHEFT 11:54
DX: K08.89 Other specified disorders of teeth and supporting structures (principal); F17.210 Nicotine dependence, cigarettes, uncomplicated; Z87.440 Personal history of urinary (tract) infections
CPT/HCPCS: 99282

== ENCOUNTER 2016-09-07 07:23 | Emergency (ER) | payer MEDICAID ==
[~2016-09-07] VITALS: Ht 152.4 cm; Wt 73.5 kg
[~2016-09-07 07:23] MED LIST changes: -AUGM875T PO; -HYDR1SOL3 PO; -MEDR4PAK PO; +NAPR500T PO; +PENI250T59 PO; +TRAM50TA PO
[2016-09-07 07:28] VITALS: BP 128/80; PULSE 84; RESP 22; TEMP 98.3; O2SAT 99
[2016-09-07] MEDS ORDERED: SODIUM CHLOR 0.9% 1000 ML INJ 1,000 ML IV SCH (07:43)
[2016-09-07] MEDS ORDERED: ONDANSETRON HCL 4 MG/2 ML VIAL IVP ONE (07:45)
[2016-09-07] MEDS ORDERED: ALUMINUM/MAGNESIUM/SIMETH 30 ML CUP PO ONE (07:45)
[2016-09-07] MEDS ORDERED: ATROPINE/SCOPOLAM/HYOSCYAM/PB ELIXIR 10 ML CUP PO ONE (07:45)
[2016-09-07] MEDS ORDERED: PANTOPRAZOLE SODIUM 40 MG VIAL IVP ONE (07:45)
--- NOTE | 2016-09-07 07:51 | PD ---
HPI Chief Complaint: Abdominal Pain Time Seen by Provider: 07:37 Travel History International Travel<30 days: No Contact w/Intl Traveler<30days: No Traveled to known affect area: No History of Present Illness HPI 36-year-old female complains of abdominal pain with nausea vomiting. Patient states the symptoms started last night. Patient states the pain cramping pain localized around the epigastric area. Patient denies any pain radiation. Patient states that she has intermittent nausea vomiting with the pain. Patient denies any headache. Patient denies any chest pain or shortness of breath. Patient denies any dysuria or frequency. Patient denies any vaginal discharge or bleeding. Patient status post cholecystectomy and tubal ligation. Patient states that she has history of abdominal pain the past. Patient states that she was told that she has Crohn's disease. Patient however has not seen any GI specialist. On a scale of 1-10 the pain is a 9. PFSH Past Medical History Arthritis: No Blood Disorders: No Anxiety: No Depression: No Cancer: No Cardiovascular Problems: No Cerebrovascular Accident: No Diabetes: No Diminished Hearing: No Endocrine: No Gastrointestinal Disorders: Yes Genitourinary: Yes (Frequent UTI's) Immune Disorder: No Implanted Vascular Access Dvce: No Musculoskeletal: No Neurologic: No Psychiatric: No Reproductive: No Respiratory: No Immunizations Current: Yes Migraines: Yes Thyroid Disease: No Influenza Vaccination: No ?: Not LMP: 5/4/ : 6 Para: 3 Miscarriage: 2 : 1 Ovarian Cysts: Yes Tubal Ligation: Yes Past Surgical History AICD: No Arteriovenous Shunt: No Cardiac Surgery: No Section: Yes (X's 3 ) Cholecystectomy: Yes Ear Surgery: No Endocrine Surgery: No Eye Surgery: No Genitourinary Surgery: No Gynecologic Surgery: Yes (CS X's 3) Insulin Pump: No Joint Replacement: No Neurologic Surgery: No Oral Surgery: No Thoracic Surgery: No Other Surgery: Yes ( TUBAL GALLBLADDER) Social History Alcohol Use: Yes (Socially) Tobacco Use: Yes (1/2 PPD) Substance Use: No Allergies-Medications (Allergen,Severity, Reaction): Coded Allergies: No Known Allergies (Unverified , 09/07/16) Reported Meds & Prescriptions Reported Meds & Active Scripts Active Bentyl (Dicyclomine HCl) 20 Mg Tab 20 Mg PO TID Carafate (Sucralfate) 1 Gm Tab 1 Gm PO QID On empty stomach Protonix (Pantoprazole Sodium) 20 Mg Tab 20 Mg PO DAILY Phenergan (Promethazine HCl) 25 Mg Tab 25 Mg PO Q6H PRN Review of Systems General / Constitutional: No: Fever Eyes: No: Visual changes HENT: No: Headaches Cardiovascular: No: Chest Pain or Discomfort Respiratory: No: Shortness of Breath Gastrointestinal: Positive: Nausea, Vomiting, Abdominal Pain Genitourinary: No: Dysuria Musculoskeletal: No: Pain Skin: No Rash Neurologic: No: Weakness Psychiatric: No: Depression Endocrine: No: Polydipsia Hematologic/Lymphatic: No: Easy Bruising Physical Exam Narrative GENERAL: Well-nourished, well-developed patient. SKIN: Focused skin assessment warm/dry. HEAD: Normocephalic. EYES: No scleral icterus. No injection or drainage. NECK: Supple, trachea midline. No JVD or lymphadenopathy. CARDIOVASCULAR: Regular rate and rhythm without murmurs, gallops, or rubs. RESPIRATORY: Breath sounds equal bilaterally. No accessory muscle use. GASTROINTESTINAL: Abdomen soft, nondistended. Mild to moderate tenderness on palpation epigastric area. No rebound tenderness. No mass. MUSCULOSKELETAL: No cyanosis, or edema. BACK: Nontender without obvious deformity. No CVA tenderness. Neurologic exam normal. Data Data Last Documented VS Vital Signs Date Time Temp Pulse Resp B/P Pulse Ox O2 Delivery O2 Flow Rate FiO2 09/07/16 09:06 18 09/07/16 08:52 78 128/68 98 Room Air 09/07/16 07:28 98.3 Orders Urinalysis - C+S If Indicated (09/07/16 07:37) Complete Blood Count With Diff (09/07/16 07:43) Comprehensive Metabolic Panel (09/07/16 07:43) Lipase (09/07/16 07:43) Iv Access Insert/Monitor (09/07/16 07:43) Ecg Monitoring (09/07/16 07:43) Oximetry (09/07/16 07:43) Ondansetron Inj (Zofran Inj) (09/07/16 07:45) Pantoprazole Inj (Protonix Inj) (09/07/16 07:45) Sodium Chlor 0.9% 1000 Ml Inj (Ns 1000 M (09/07/16 07:43) Al-Mag Hy-Si 40-40-4 Mg/Ml Liq (Mag-Al P (09/07/16 07:45) Pzkmq-Sudemy-Gjbliu-Pb Liq ( Liq (09/07/16 07:45) Metoclopramide Inj (Reglan Inj) (09/07/16 08:15) Diphenhydramine Inj (Benadryl Inj) (09/07/16 08:15) Urine Culture (09/07/16 07:40) Ct Abd/Pel W Iv Contrast(Rout) (09/07/16 08:08) Iohexol 350 Inj (Omnipaque 350 Inj) (09/07/16 08:41) Morphine Inj (Morphine Inj) (09/07/16 08:45) Labs Laboratory Tests Test 09/07/16 09/07/16 07:40 07:45 Urine Collection Type CLEAN CATCH Urine Color YELLOW Urine Turbidity SLIGHT Urine pH 6.0 Urine Specific [place] 1.017 Urine Protein TRACE mg/dL Urine Glucose (UA) NEG mg/dL Urine Ketones NEG mg/dL Urine Occult Blood SMALL Urine Nitrite NEG Urine Bilirubin NEG Urine Leukocyte Esterase NEG Urine RBC 4-9 /hpf Urine WBC 3-5 /hpf Urine Squamous Epithelial 6-8 /hpf Cells Urine Amorphous Sediment FEW Urine Bacteria MOD /hpf Microscopic Urinalysis Comment CULTURE INDICATED Urine Collection Time 0740 White Blood Count 13.3 TH/MM3 Red Blood Count 4.19 MIL/MM3 Hemoglobin 13.1 GM/DL Hematocrit 38.7 % Mean Corpuscular Volume 92.4 FL Mean Corpuscular Hemoglobin 31.3 PG Mean Corpuscular Hemoglobin 33.8 % Concent Red Cell Distribution Width 13.5 % Platelet Count 389 TH/MM3 Mean Platelet Volume 7.3 FL Neutrophils (%) (Auto) 75.2 % Lymphocytes (%) (Auto) 17.5 % Monocytes (%) (Auto) 5.7 % Eosinophils (%) (Auto) 1.2 % Basophils (%) (Auto) 0.4 % Neutrophils # (Auto) 9.9 TH/MM3 Lymphocytes # (Auto) 2.3 TH/MM3 Monocytes # (Auto) 0.8 TH/MM3 Eosinophils # (Auto) 0.2 TH/MM3 Basophils # (Auto) 0.1 TH/MM3 CBC Comment DIFF FINAL Differential Comment Sodium Level 140 MEQ/L Potassium Level 4.2 MEQ/L Chloride Level 108 MEQ/L Carbon Dioxide Level 24.1 MEQ/L Anion Gap 8 MEQ/L Blood Urea Nitrogen 10 MG/DL Creatinine 0.62 MG/DL Estimat Glomerular Filtration 110 ML/MIN Rate Random Glucose 94 MG/DL Calcium Level 9.3 MG/DL Total Bilirubin 0.6 MG/DL Aspartate Amino Transf 14 U/L (AST/SGOT) Alanine Aminotransferase 27 U/L (ALT/SGPT) Alkaline Phosphatase 65 U/L Total Protein 8.2 GM/DL Albumin 3.9 GM/DL Lipase 174 U/L [facility] Medical Decision Making Medical Screen Exam Complete: Yes Emergency Medical Condition: Yes Interpretation(s) 8:17 AM. CBC WBC 13.3. 75 neutrophil. CMP within normal limit. UA positive for few WBC, RBC, bacteria. 9:[address] abdomen and Pelvis Negative Acute Pathology. Differential Diagnosis Differential diagnosis including gastritis, PUD, pancreatitis, colitis, UTI, pyelonephritis, nephrolithiasis, bowel obstruction. Narrative Course 36-year-old female with epigastric abdominal pain and nausea vomiting. Normal saline solution 1 L IV bolus. Protonix 40 mg IV. Zofran 4 mg IV. Maalox 30 cc by mouth. 10 cc by mouth. Diagnosis Primary Impression: Abdominal pain Qualified Code: R10.13 - Epigastric pain Additional Impressions: Gastritis Qualified Code: K29.00 - Acute gastritis without hemorrhage, unspecified gastritis type UTI (urinary tract infection) Qualified Code: N30.00 - Acute cystitis without hematuria Patient Instructions: General Instructions Additional Instructions: Take medications as directed. Follow-up with GI specialist personal physician. Return if persistent problem or worse. Med/Other Pt SpecificInfo: Prescription(s) given Scripts Sulfamethoxazole-Trimethoprim (Bactrim DS)800-160 Mg Tab1 Tab PO BID #6 TAB Prov:Milo Valdez MD 09/07/16 Dicyclomine (Bentyl)20 Mg Tab20 Mg PO TID #21 TAB Ref 0 Prov:Milo Valdez MD 09/07/16 Sucralfate (Carafate)1 Gm Tab1 Gm PO QID #120 TAB Ref 0 On empty stomach Prov:Milo Valdez MD 09/07/16 Pantoprazole (Protonix)20 Mg Tab20 Mg PO DAILY #30 TAB Ref 0 Prov:Milo Valdez MD 09/07/16 Promethazine (Phenergan)25 Mg Tab25 Mg PO Q6H PRN (Nausea/Vomiting) #10 TAB Ref 0 Prov:Milo Valdez MD 09/07/16 Disposition: 01 DISCHARGE HOME Condition: Stable Milo Valdez MD September 07, 2016 07:51
[2016-09-07 07:54] LABS: AUTOMATED NEUTROPHIL # 9.9 TH/MM3 (1.8-7.7); BASOPHIL # 0.1 TH/MM3 (0-0.2); BASOPHIL % 0.4 % (0.0-2.0); EOSINOPHIL # 0.2 TH/MM3 (0-0.4); EOSINOPHIL % 1.2 % (0.0-4.0); HEMATOCRIT 38.7 % (35.0-46.0); LYMPH % 17.5 % (9.0-44.0); LYMPHOCYTE # 2.3 TH/MM3 (1.0-4.8); MEAN CELL VOLUME 92.4 FL (80.0-100.0); MEAN CORPUSCULAR HEMOGLOBIN 31.3 PG (27.0-34.0); MEAN CORPUSCULAR HGB CONC 33.8 % (32.0-36.0); MONO % 5.7 % (0.0-8.0); NEUT % 75.2 % (16.0-70.0); PLATELET COUNT 389 TH/MM3 (150-450); RED BLOOD COUNT 4.19 MIL/MM3 (4.00-5.30); RED CELL DISTRIBUTION WIDTH 13.5 % (11.6-17.2); WHITE BLOOD COUNT 13.3 TH/MM3 (4.0-11.0)
[2016-09-07 07:56] VITALS: BP 131/63; PULSE 82; RESP 18; O2SAT 99
[2016-09-07 07:57] LABS: BLOOD, URINE SMALL (NEG); GLUCOSE,URINE NEG (NEG); KETONE, URINE NEG (NEG); NITRITE,URINE NEG (NEG)
[2016-09-07 07:59] LABS: HEMO FLAGS DIFF FINAL
[2016-09-07 08:01] LABS: CHLORIDE 108 MEQ/L (98-107); POTASSIUM 4.2 MEQ/L (3.5-5.1); SODIUM (NA) 140 MEQ/L (136-145)
[2016-09-07 08:05] LABS: ANION GAP 8 MEQ/L (5-15); BICARBONATE 24.1 MEQ/L (21.0-32.0); BLOOD UREA NITROGEN 10 MG/DL (7-18)
[2016-09-07 08:06] LABS: METHOD OF COLLECTION CLEAN CATCH; URINE COLOR YELLOW (YELLW/STRAW)
[2016-09-07 08:07] LABS: ALT (GPT) 27 U/L (10-53); AST (GOT) 14 U/L (15-37)
[2016-09-07 08:07] LABS: BACTERIA, URINE MOD /hpf; COMMENT (UR) CULTURE INDICATED; CULTURE IF INDICATED CULTURE INDICATED
[2016-09-07 08:08] LABS: GLOMERULAR FILTRATION RATE 110 ML/MIN (>89)
[2016-09-07 08:09] LABS: TOTAL BILIRUBIN ADULT 0.6 MG/DL (0.2-1.0)
[2016-09-07 08:10] LABS: ALKALINE PHOSPHATASE 65 U/L (45-117)
[2016-09-07] MEDS ORDERED: METOCLOPRAMIDE HCL 10 MG/2 ML VIAL IV PUSH ONE (08:15)
[2016-09-07] MEDS ORDERED: diphenhydrAMINE HCL 50 MG/ML VIAL IV PUSH ONE (08:15)
[2016-09-07] MEDS ORDERED: IOHEXOL 350 MG/ML 10 ML VIAL (for RAD DIAG) IV ONE (08:41)
[2016-09-07] MEDS ORDERED: MORPHINE SULFATE 4 MG/ML INJ IV PUSH ONE (08:45)
[2016-09-07 08:52] VITALS: BP 128/68; PULSE 78; RESP 18; O2SAT 98
[2016-09-07 09:06] VITALS: RESP 18
--- NOTE | 2016-09-07 09:31 | RADHPO ---
EXAM DATE/TIME: 09/07/2016 08:23 [facility] COMPARISON: CT ABDOMEN & PELVIS W CONTRAST, May 26, 2016, 6:46. INDICATIONS : Epigastric pain with nausea and vomiting. IV CONTRAST: 96 cc Omnipaque 350 (iohexol) IV ORAL CONTRAST: No oral contrast ingested. RADIATION DOSE: 9.69 CTDIvol (mGy) MEDICAL HISTORY : Crohn's disease. SURGICAL HISTORY : Cholecystectomy. section.Tubal ligation. ENCOUNTER: Initial ACUITY: 2 days PAIN SCALE: 5/10 LOCATION: Bilateral upper quadrant TECHNIQUE: Volumetric scanning of the abdomen and pelvis was performed. Using automated exposure control and ad justment of the mA and/or kV according to patient size, radiation dose was kept as low as reasonably achievable to obtain optimal diagnostic quality images. FINDINGS: LOWER LUNGS: The visualized lower lungs are clear. LIVER: Homogeneous density without lesion. There is no dilation of the biliary tree. Cholecystectomy clips. SPLEEN: Normal size without lesion. PANCREAS: Within normal limits. KIDNEYS: Normal in size and shape. There is no hydronephrosis. Subcentimeter hypodensities again indicating c ysts. ADRENAL GLANDS: Within normal limits. VASCULAR: There is no aortic aneurysm. BOWEL/MESENTERY: No evidence of bowel dilatation. No free air or free fluid. Appendix within normal limits. ABDOMINAL WALL: Within normal limits. RETROPERITONEUM: There is no lymphadenopathy. BLADDER: No wall thickening or mass. REPRODUCTIVE: Within normal limits. INGUINAL: There is no lymphadenopathy or hernia. MUSCULOSKELETAL: Within normal limits for patient age. CONCLUSION: No acute findings in the abdomen or pelvis. Suresh Pearson MD on September 07, 2016 at 9:14 Board Certified Radiologist. This report was verified electronically.
[2016-09-07] MEDS ORDERED: BENT20TA PO (09:38)
[2016-09-07] MEDS ORDERED: PANT20 PO (09:38)
[2016-09-07] MEDS ORDERED: CARA1TAB6 PO (09:38)
[2016-09-07] MEDS ORDERED: PROM25TA5 PO (09:38)
[2016-09-07] MEDS ORDERED: BACT800T5 PO (09:39)
== END 2016-09-07 09:44 | disposition home or self-care (01) ==
LOC: PHED 07:23
DX: K29.00 Acute gastritis without bleeding (principal); N30.00 Acute cystitis without hematuria; F17.210 Nicotine dependence, cigarettes, uncomplicated; B96.89 Other specified bacterial agents as the cause of diseases classified elsewhere
CPT/HCPCS: 74177; 80053; 81001; 83690; 85025; 87086; 96361; 96374; 96375; 99284; C9113; J1200; J2270; J2405; J2765; J7030; Q9967

== ENCOUNTER 2016-11-12 23:10 | Emergency (ER) | payer MEDICAID ==
[~2016-11-12] VITALS: Ht 152.4 cm; Wt 79.4 kg
[~2016-11-12 23:10] MED LIST changes: +BACT800T5 PO; +BENT20TA PO; +CARA1TAB6 PO; -NAPR500T PO; +PANT20 PO; -PENI250T59 PO; +PROM25TA5 PO; -TRAM50TA PO
[2016-11-12 23:19] VITALS: BP 122/69; PULSE 86; RESP 16; TEMP 97.8; O2SAT 99
[2016-11-13 01:48] VITALS: BP 128/68; PULSE 89; RESP 16; O2SAT 99
--- NOTE | 2016-11-13 01:48 | PD ---
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 Patient states that she inserted a tampon in her vagina yesterday however unable to know for sure whether it was removed or not. Patient denies any abdominal pain and pelvic pain. Patient denies any dysuria or frequency. Patient denies any vaginal discharge or bleeding. PFSH Past Medical History Arthritis: No Blood Disorders: No Anxiety: No Depression: No Cancer: No Cardiovascular Problems: No Cerebrovascular Accident: No Diabetes: No Diminished Hearing: No Endocrine: No Gastrointestinal Disorders: Yes Genitourinary: Yes (Frequent UTI's) Immune Disorder: No Implanted Vascular Access Dvce: No Musculoskeletal: No Neurologic: No Psychiatric: No Reproductive: No Respiratory: No Immunizations Current: Yes Migraines: Yes Thyroid Disease: No Influenza Vaccination: No ?: Not LMP: 11/06/16 : 6 Para: 3 Miscarriage: 2 : 1 Ovarian Cysts: Yes Tubal Ligation: Yes Past Surgical History AICD: No Arteriovenous Shunt: No Cardiac Surgery: No Section: Yes (X's 3 ) Cholecystectomy: Yes Ear Surgery: No Endocrine Surgery: No Eye Surgery: No Genitourinary Surgery: No Gynecologic Surgery: Yes (CS X's 3) Insulin Pump: No Joint Replacement: No Neurologic Surgery: No Oral Surgery: No Thoracic Surgery: No Other Surgery: Yes ( TUBAL GALLBLADDER) Social History Alcohol Use: Yes (DAILY) Tobacco Use: Yes (1/2 PPD) Substance Use: No Allergies-Medications (Allergen,Severity, Reaction): Coded Allergies: No Known Allergies (Unverified , 09/07/16) Reported Meds & Prescriptions Reported Meds & Active Scripts Active Flagyl (Metronidazole) 500 Mg Tab 500 Mg PO QID Review of Systems General / Constitutional: No: Fever Eyes: No: Visual changes HENT: No: Headaches Cardiovascular: No: Chest Pain or Discomfort Respiratory: No: Shortness of Breath Gastrointestinal: No: Abdominal Pain Genitourinary: Positive: Discharge, No: Dysuria Musculoskeletal: No: Pain Skin: No Rash Neurologic: No: Weakness Psychiatric: No: Depression Endocrine: No: Polydipsia Hematologic/Lymphatic: No: Easy Bruising Physical Exam Narrative GENERAL: Well-nourished, well-developed patient. SKIN: Focused skin assessment warm/dry. HEAD: Normocephalic. EYES: No scleral icterus. No injection or drainage. NECK: Supple, trachea midline. No JVD or lymphadenopathy. CARDIOVASCULAR: Regular rate and rhythm without murmurs, gallops, or rubs. RESPIRATORY: Breath sounds equal bilaterally. No accessory muscle use. GASTROINTESTINAL: Abdomen soft, non-tender, nondistended. MUSCULOSKELETAL: No cyanosis, or edema. BACK: Nontender without obvious deformity. No CVA tenderness. [employer] exam: Patient has small amounts of whitish greenish discharge in the vaginal vault. No cervical motion tenderness. No obvious foreign body noted. Uterus is nonenlarged and nontender on palpation. No adnexal mass or tenderness. Data Data Last Documented VS Vital Signs Date Time Temp Pulse Resp B/P Pulse Ox O2 Delivery O2 Flow Rate FiO2 11/13/16 01:48 89 16 128/68 99 Room Air 11/12/16 23:19 97.8 Orders Gc And Chlamydia Pcr (11/13/16 01:48) Wet Prep Profile (11/13/16 01:48) Labs Laboratory Tests Test 11/13/16 01:40 Clue Cells (Wet Prep) PRESENT Vaginal Trichomonas (Wet Prep) PRESENT Vaginal Yeast (Wet Prep) NONE SEEN MDM Medical Decision Making Medical Screen Exam Complete: Yes Emergency Medical Condition: Yes Interpretation(s) 2:32 AM. The wet prep positive for clue cells and Trichomonas. Differential Diagnosis Differential diagnosis including foreign body, cervicitis, PID. Narrative Course 36-year-old female with possible retained tampon. Examination did not review any foreign body or tampon in the vaginal vault. GC chlamydia PCR obtained. Diagnosis Primary Impression: Trichomonas vaginitis Patient Instructions: General Instructions Additional Instructions: GC chlamydia culture pending. Patient will be notified if any positive results. Follow-up with local physician. Return as needed. Take Flagyl as directed. Med/Other Pt SpecificInfo: Prescription(s) given, No Meds Exist/No RX given Scripts Metronidazole (Flagyl)500 Mg [id number] Mg PO QID #8 TAB Ref 0 Prov:Milo Valdez MD 11/13/16 Disposition: DISCHARGE HOME Condition: Stable Milo Valdez MD Nov 13, 2016:48 Milo Valdez MD Nov 13, 2016 01:48
[2016-11-13] MEDS ORDERED: METR-1 PO (02:35)
[2016-11-13 13:20] LABS: CHLAMYDIA PCR NOT DETECTED (NOT DETECT); NEISSERIA PCR NOT DETECTED (NOT DETECT)
== END 2016-11-13 02:08 | disposition home or self-care (01) ==
LOC: PHED 23:10
DX: A59.01 Trichomonal vulvovaginitis (principal); F17.200 Nicotine dependence, unspecified, uncomplicated; Z87.19 Personal history of other diseases of the digestive system; Z87.448 Personal history of other diseases of urinary system; Z86.69 Personal history of other diseases of the nervous system and sense organs
CPT/HCPCS: 87210; 87491; 87591; 99284

== ENCOUNTER 2016-11-20 02:09 | Emergency (ER) | payer MEDICAID ==
[~2016-11-20] VITALS: Ht 152.4 cm; Wt 78.3 kg
[~2016-11-20 02:09] MED LIST changes: -BACT800T5 PO; -BENT20TA PO; -CARA1TAB6 PO; +METR-1 PO; -PANT20 PO; -PROM25TA5 PO
[2016-11-20 02:16] VITALS: BP 137/81; PULSE 89; RESP 12; TEMP 98.4; O2SAT 100
[2016-11-20] MEDS ORDERED: SODIUM CHLOR 0.9% 1000 ML INJ 1,000 ML IV SCH (02:22)
--- NOTE | 2016-11-20 02:24 | PD ---
HPI Chief Complaint: abdominal pain Time Seen by Provider: 02:21 Travel History International Travel<30 days: No Contact w/Intl Traveler<30days: No Traveled to known affect area: No History of Present Illness HPI 36-year-old female with history of cholecystectomy, presents to the ER today because of 5 days history of right sided abdominal pain with radiation to the back, worse with urinating. She has been nauseous and vomiting. She denies any fevers, diarrhea, or any other symptoms. Pain is currently rated as 7 out of 10. Modifying Factors: None Associated Signs & Symptoms: Right sided abdominal pain with nausea and vomiting Risk Factors: None PFSH Past Medical History Arthritis: No Blood Disorders: No Anxiety: No Depression: No Cancer: No Cardiovascular Problems: No Cerebrovascular Accident: No Diabetes: No Diminished Hearing: No Endocrine: No Gastrointestinal Disorders: Yes Genitourinary: Yes (Frequent UTI's) Immune Disorder: No Implanted Vascular Access Dvce: No Musculoskeletal: No Neurologic: No Psychiatric: No Reproductive: No Respiratory: No Immunizations Current: Yes Migraines: Yes Thyroid Disease: No : 6 Para: 3 Miscarriage: 2 : 1 Ovarian Cysts: Yes Tubal Ligation: Yes Past Surgical History AICD: No Arteriovenous Shunt: No Cardiac Surgery: No Section: Yes (X's 3 ) Cholecystectomy: Yes Ear Surgery: No Endocrine Surgery: No Eye Surgery: No Genitourinary Surgery: No Gynecologic Surgery: Yes (CS X's 3) Insulin Pump: No Joint Replacement: No Neurologic Surgery: No Oral Surgery: No Thoracic Surgery: No Other Surgery: Yes ( TUBAL GALLBLADDER) Social History Alcohol Use: Yes (DAILY) Tobacco Use: Yes (1/2 PPD) Substance Use: No Allergies-Medications (Allergen,Severity, Reaction): Coded Allergies: No Known Allergies (Unverified , 11/20/16) Reported Meds & Prescriptions Reported Meds & Active Scripts Active Reported Advil Allergy Sinus (Ecjmxjpyklypydku-Vnrzngnjsejmttj-Uqwnatmcn) 2-30-200 Mg Tab 1 Tab PO Q4H PRN Review of Systems Except as stated in HPI: all other systems reviewed are Neg Physical Exam Narrative GENERAL: Well-developed young white female patient currently in mild distress. Awake appointed 3. SKIN: Focused skin assessment warm/dry. HEAD: Atraumatic. Normocephalic. EYES: Pupils equal and round. No scleral icterus. No injection or drainage. ENT: No nasal bleeding or discharge. Mucous membranes pink and moist. NECK: Trachea midline. No JVD. CARDIOVASCULAR: Regular rate and rhythm. No murmur appreciated. RESPIRATORY: No accessory muscle use. Clear to auscultation. Breath sounds equal bilaterally. GASTROINTESTINAL: Abdomen soft, right lower quadrant tenderness without guarding or rebound, nondistended. Hepatic and splenic margins not palpable. GENITOURINARY: Normal external genitalia without lesions or erythema. Vaginal vault without blood but notable for whitish drainage. Cervical os was closed without drainage. Positive cervical motion tenderness. Uterus nontender and nonenlarged. Bilateral adnexa nontender without masses. BACK: No CVA tenderness. No rash. No point tenderness on palpation of the spine. MUSCULOSKELETAL: No obvious deformities. No clubbing. No cyanosis. No edema. NEUROLOGICAL: Awake and alert. No obvious cranial nerve deficits. Motor grossly within normal limits. Normal speech. PSYCHIATRIC: Appropriate mood and affect; insight and judgment normal. Data Data Last Documented VS Vital Signs Date Time Temp Pulse Resp B/P Pulse Ox O2 Delivery O2 Flow Rate FiO2 11/20/16 03:42 87 16 106/69 96 Room Air 11/20/16 02:16 98.4 Orders Complete Blood Count With Diff (11/20/16 02:22) Comprehensive Metabolic Panel (11/20/16 02:22) Lipase (11/20/16 02:22) Urinalysis - C+S If Indicated (11/20/16 02:22) Ct Abd/Pel W Iv Contrast(Rout) (11/20/16 02:22) Iv Access Insert/Monitor (11/20/16 02:22) Ecg Monitoring (11/20/16 02:22) Oximetry (11/20/16 02:22) Ondansetron Inj (Zofran Inj) (11/20/16 02:30) Sodium Chlor 0.9% 1000 Ml Inj (Ns 1000 M (11/20/16 02:22) Sodium Chloride 0.9% Flush (Ns Flush) (11/20/16 02:30) Hydromorphone Pf Inj (Dilaudid Pf Inj) (11/20/16 02:30) Ed Urine Pregnancytest Poc (11/20/16 02:22) Iohexol 350 Inj (Omnipaque 350 Inj) (11/20/16 03:30) Gc And Chlamydia Pcr (11/20/16 04:00) Wet Prep Profile (11/20/16 04:00) Labs Laboratory Tests Test 11/20/16 11/20/16 02:27 04:00 White Blood Count 15.1 TH/MM3 Red Blood Count 3.90 MIL/MM3 Hemoglobin 12.5 GM/DL Hematocrit 35.9 % Mean Corpuscular Volume 92.1 FL Mean Corpuscular Hemoglobin 32.0 PG Mean Corpuscular Hemoglobin 34.8 % Concent Red Cell Distribution Width 12.7 % Platelet Count 324 TH/MM3 Mean Platelet Volume 8.0 FL Neutrophils (%) (Auto) 67.9 % Lymphocytes (%) (Auto) 25.1 % Monocytes (%) (Auto) 5.6 % Eosinophils (%) (Auto) 0.9 % Basophils (%) (Auto) 0.5 % Neutrophils # (Auto) 10.3 TH/MM3 Lymphocytes # (Auto) 3.8 TH/MM3 Monocytes # (Auto) 0.8 TH/MM3 Eosinophils # (Auto) 0.1 TH/MM3 Basophils # (Auto) 0.1 TH/MM3 CBC Comment DIFF FINAL Differential Comment Urine Color YELLOW Urine Turbidity SLIGHT Urine pH 6.5 Urine Specific [place] 1.011 Urine Protein NEG mg/dL Urine Glucose (UA) NEG mg/dL Urine Ketones NEG mg/dL Urine Occult Blood TRACE Urine Nitrite NEG Urine Bilirubin NEG Urine Leukocyte Esterase NEG Urine RBC 0-3 /hpf Urine Squamous Epithelial 0-5 /hpf Cells Urine Bacteria OCC /hpf Microscopic Urinalysis Comment CULT NOT INDICATED Sodium Level 141 MEQ/L Potassium Level 3.6 MEQ/L Chloride Level 110 MEQ/L Carbon Dioxide Level 25.1 MEQ/L Anion Gap 6 MEQ/L Blood Urea Nitrogen 12 MG/DL Creatinine 0.62 MG/DL Estimat Glomerular Filtration 110 ML/MIN Rate Random Glucose 84 MG/DL Calcium Level 8.3 MG/DL Total Bilirubin 0.2 MG/DL Aspartate Amino Transf 11 U/L (AST/SGOT) Alanine Aminotransferase 15 U/L (ALT/SGPT) Alkaline Phosphatase 65 U/L Total Protein 7.7 GM/DL Albumin 3.7 GM/DL Lipase 134 U/L Clue Cells (Wet Prep) NONE SEEN Vaginal Trichomonas (Wet Prep) NONE SEEN Vaginal Yeast (Wet Prep) NONE SEEN MDM Medical Decision Making Medical Screen Exam Complete: Yes Emergency Medical Condition: Yes Medical Record Reviewed: Yes Interpretation(s) Laboratory Tests Test 11/20/16 02:27 White Blood Count 15.1 TH/MM3 (4.0-11.0) Red Blood Count 3.90 MIL/MM3 (4.00-5.30) Neutrophils # (Auto) 10.3 TH/MM3 (1.8-7.7) Urine Occult Blood TRACE (NEG) Urine Bacteria OCC /hpf (NONE) Chloride Level 110 MEQ/L (98-107) Calcium Level 8.3 MG/DL (8.5-10.1) Aspartate Amino Transf 11 U/L (15-37) (AST/SGOT) Last 24 hours Impressions Abdomen/Pelvis CT 11/20/16 0222 Signed Impressions: Service Date/Time: Friday, November 20, 2016 03:08 - CONCLUSION: 1. Cystic structure in the right adnexa most characteristic of an ovarian cyst 2. Status post cholecystectomy. 3. Unremarkable bowel gas pattern. Yogesh Blank MD Differential Diagnosis Right sided abdominal pain with nausea and vomitingrenal colic versus pyelonephritis versus appendicitis versus diverticulitis versus gastritis Narrative Course CAT scan shows right side ovarian cyst which has been seen previously as well. UA did not show any signs of UTI. Pelvic exam is positive for CMT and whitish discharge concern etiology. Patient is recently treated with Flagyl for vaginitis. Wet prep is currently negative although was positive for Trichomonas and clue cells last time. There is no yeast. Her GC chlamydia was negative last time. At this point, my plan would be to release the patient with symptomatic relief or pain. Return for worsening in symptoms as needed. The plan has been discussed with her and she states understanding. Diagnosis Primary Impression: Ovarian cyst Additional Impression: Abdominal pain Med/Other Pt SpecificInfo: Prescription(s) given Scripts Fluconazole (Diflucan)150 Mg [id number] Mg PO ONCE #1 TAB Ref 0 Prov:Hanny Davis MD 11/20/16 Ondansetron Odt (Zofran Odt)4 Mg Tab4 Mg SL Q6HR PRN (Nausea/Vomiting) #7 TAB Ref 0 Prov:Hanny Davis MD 11/20/16 Tramadol-Acetaminophen 37.5-325 mg Tab1 Tab PO Q4H PRN (PAIN) #15 TAB Ref 0 Prov:Hanny Davis MD 11/20/16 Disposition: 01 DISCHARGE HOME Condition: Stable Hanny Davis MD Nov 20, 2016 02:24
[2016-11-20] MEDS ORDERED: HYDROmorphone HCL PF 1 MG/ML VIAL IVS ONE (02:30)
[2016-11-20] MEDS ORDERED: ONDANSETRON HCL 4 MG/2 ML VIAL IVP ONE (02:30)
[2016-11-20] MEDS ORDERED: SODIUM CHLORIDE 0.9% FLUSH 10 ML FLUSH IV FLUSH PRN (02:30)
[2016-11-20] MEDS ORDERED: ADVITAB3 PO (02:36)
[2016-11-20 02:46] LABS: BLOOD, URINE TRACE (NEG); GLUCOSE,URINE NEG (NEG); KETONE, URINE NEG (NEG); NITRITE,URINE NEG (NEG); PH, URINE 6.5 (5.0-8.5)
[2016-11-20 02:50] VITALS: BP 134/78; PULSE 83; RESP 18; O2SAT 97
[2016-11-20 02:56] LABS: URINE COLOR YELLOW (YELLW/STRAW)
[2016-11-20 02:57] LABS: AUTOMATED NEUTROPHIL # 10.3 TH/MM3 (1.8-7.7); BASOPHIL # 0.1 TH/MM3 (0-0.2); BASOPHIL % 0.5 % (0.0-2.0); EOSINOPHIL # 0.1 TH/MM3 (0-0.4); EOSINOPHIL % 0.9 % (0.0-4.0); HEMATOCRIT 35.9 % (35.0-46.0); HEMO FLAGS DIFF FINAL; LYMPH % 25.1 % (9.0-44.0); LYMPHOCYTE # 3.8 TH/MM3 (1.0-4.8); MEAN CELL VOLUME 92.1 FL (80.0-100.0); MEAN CORPUSCULAR HGB CONC 34.8 % (32.0-36.0); MONO % 5.6 % (0.0-8.0); NEUT % 67.9 % (16.0-70.0); PLATELET COUNT 324 TH/MM3 (150-450); RBC, URINE 0-3 /hpf (0-3); RED CELL DISTRIBUTION WIDTH 12.7 % (11.6-17.2); WHITE BLOOD COUNT 15.1 TH/MM3 (4.0-11.0)
[2016-11-20 02:58] LABS: BACTERIA, URINE OCC /hpf; CHLORIDE 110 MEQ/L (98-107); COMMENT (UR) CULT NOT INDICATED; CULTURE IF INDICATED CULT NOT INDICATED; POTASSIUM 3.6 MEQ/L (3.5-5.1); SODIUM (NA) 141 MEQ/L (136-145); SQUAMOUS EPITHELIAL CELL URINE 0-5 /hpf (0-5)
[2016-11-20 03:01] LABS: ANION GAP 6 MEQ/L (5-15); BICARBONATE 25.1 MEQ/L (21.0-32.0)
[2016-11-20 03:02] LABS: BLOOD UREA NITROGEN 12 MG/DL (7-18)
[2016-11-20 03:04] LABS: ALT (GPT) 15 U/L (10-53); AST (GOT) 11 U/L (15-37); GLOMERULAR FILTRATION RATE 110 ML/MIN (>89)
[2016-11-20 03:06] LABS: TOTAL BILIRUBIN ADULT 0.2 MG/DL (0.2-1.0)
[2016-11-20 03:07] LABS: ALKALINE PHOSPHATASE 65 U/L (45-117)
[2016-11-20] MEDS ORDERED: IOHEXOL 350 MG/ML 10 ML VIAL (for RAD DIAG) IV ONE (03:30)
--- NOTE | 2016-11-20 03:38 | RADRPT ---
EXAM DATE/TIME: 11/20/2016 03:08 [facility] COMPARISON: CT ABDOMEN & PELVIS W CONTRAST, September 07, 2016, 8:23. INDICATIONS : Right sided abdomen pain for five days along with nausea and vomiting IV CONTRAST: 65 cc Omnipaque 350 (iohexol) IV ORAL CONTRAST: No oral contrast ingested. RADIATION DOSE: 11.86 CTDIvol (mGy) MEDICAL HISTORY : Ovarian cyst SURGICAL HISTORY : Cholecystectomy. section.Tubal ligation. ENCOUNTER: Initial ACUITY: 4 - 6 days PAIN SCALE: 7/10 LOCATION: Right Abdomen TECHNIQUE: Volumetric scanning of the abdomen and pelvis was performed. Using automated exposure control and ad justment of the mA and/or kV according to patient size, radiation dose was kept as low as reasonably achievable to obtain optimal diagnostic quality images. DICOM format image data is available electro nically for review and comparison. FINDINGS: LOWER LUNGS: The visualized lower lungs are clear. LIVER: Homogeneous density without lesion. There is no dilation of the biliary tree. The patient is status post cholecystectomy. SPLEEN: Normal size without lesion. PANCREAS: Within normal limits. KIDNEYS: Normal in size and shape. There is no mass, stone or hydronephrosis. ADRENAL GLANDS: Within normal limits. VASCULAR: There is no aortic aneurysm. BOWEL/MESENTERY: No oral contrast was given limiting the sensitivity of the exam. The stomach, small bowel, and colon demonstrate no acute abnormality. There is no free intraperitoneal air or fluid. ABDOMINAL WALL: Within normal limits. RETROPERITONEUM: There is no lymphadenopathy. BLADDER: No wall thickening or mass. REPRODUCTIVE: The uterus and left adnexa are unremarkable in appearance. There is a cystic structure in the right a dnexa adjacent to the uterus measuring up to 2.6 x 1.9 x 2 cm in diameter. INGUINAL: There is no lymphadenopathy or hernia. MUSCULOSKELETAL: Within normal limits for patient age. CONCLUSION: 1. Cystic structure in the right adnexa most characteristic of an ovarian cyst 2. Status post cholecystectomy. 3. Unremarkable bowel gas pattern. Yogesh Blank MD on November 20, 2016 at 3:33 Board Certified Radiologist. This report was verified electronically.
[2016-11-20 03:42] VITALS: BP 106/69; PULSE 87; RESP 16; O2SAT 96
[2016-11-20] MEDS ORDERED: ZOFR4TAB3 SL (04:31)
[2016-11-20] MEDS ORDERED: TRAM-388 PO (04:31)
[2016-11-20] MEDS ORDERED: DIFL150T PO (04:31)
[2016-11-20 04:50] VITALS: BP 128/74
[2016-11-20 09:48] LABS: CHLAMYDIA PCR NOT DETECTED (NOT DETECT); NEISSERIA PCR NOT DETECTED (NOT DETECT)
[2016-11-20] MEDS ORDERED: TRAM50TA PO (10:56)
--- NOTE | 2016-11-20 10:56 | PD ---
Data Data Last Documented VS Vital Signs Date Time Temp Pulse Resp B/P Pulse Ox O2 Delivery O2 Flow Rate FiO2 11/20/16 04:50 73 16 128/74 99 11/20/16 03:42 Room Air 11/20/16 02:16 98.4 Orders Complete Blood Count With Diff (11/20/16 02:22) Comprehensive Metabolic Panel (11/20/16 02:22) Lipase (11/20/16 02:22) Urinalysis - C+S If Indicated (11/20/16 02:22) Ct Abd/Pel W Iv Contrast(Rout) (11/20/16 02:22) Iv Access Insert/Monitor (11/20/16 02:22) Ecg Monitoring (11/20/16 02:22) Oximetry (11/20/16 02:22) Ondansetron Inj (Zofran Inj) (11/20/16 02:30) Sodium Chlor 0.9% 1000 Ml Inj (Ns 1000 M (11/20/16 02:22) Sodium Chloride 0.9% Flush (Ns Flush) (11/20/16 02:30) Hydromorphone Pf Inj (Dilaudid Pf Inj) (11/20/16 02:30) Ed Urine Pregnancytest Poc (11/20/16 02:22) Iohexol 350 Inj (Omnipaque 350 Inj) (11/20/16 03:30) Gc And Chlamydia Pcr (11/20/16 04:00) Wet Prep Profile (11/20/16 04:00) Labs Laboratory Tests Test 11/20/16 11/20/16 02:27 04:00 White Blood Count 15.1 TH/MM3 Red Blood Count 3.90 MIL/MM3 Hemoglobin 12.5 GM/DL Hematocrit 35.9 % Mean Corpuscular Volume 92.1 FL Mean Corpuscular Hemoglobin 32.0 PG Mean Corpuscular Hemoglobin 34.8 % Concent Red Cell Distribution Width 12.7 % Platelet Count 324 TH/MM3 Mean Platelet Volume 8.0 FL Neutrophils (%) (Auto) 67.9 % Lymphocytes (%) (Auto) 25.1 % Monocytes (%) (Auto) 5.6 % Eosinophils (%) (Auto) 0.9 % Basophils (%) (Auto) 0.5 % Neutrophils # (Auto) 10.3 TH/MM3 Lymphocytes # (Auto) 3.8 TH/MM3 Monocytes # (Auto) 0.8 TH/MM3 Eosinophils # (Auto) 0.1 TH/MM3 Basophils # (Auto) 0.1 TH/MM3 CBC Comment DIFF FINAL Differential Comment Urine Color YELLOW Urine Turbidity SLIGHT Urine pH 6.5 Urine Specific [place] 1.011 Urine Protein NEG mg/dL Urine Glucose (UA) NEG mg/dL Urine Ketones NEG mg/dL Urine Occult Blood TRACE Urine Nitrite NEG Urine Bilirubin NEG Urine Leukocyte Esterase NEG Urine RBC 0-3 /hpf Urine Squamous Epithelial 0-5 /hpf Cells Urine Bacteria OCC /hpf Microscopic Urinalysis Comment CULT NOT INDICATED Sodium Level 141 MEQ/L Potassium Level 3.6 MEQ/L Chloride Level 110 MEQ/L Carbon Dioxide Level 25.1 MEQ/L Anion Gap 6 MEQ/L Blood Urea Nitrogen 12 MG/DL Creatinine 0.62 MG/DL Estimat Glomerular Filtration 110 ML/MIN Rate Random Glucose 84 MG/DL Calcium Level 8.3 MG/DL Total Bilirubin 0.2 MG/DL Aspartate Amino Transf 11 U/L (AST/SGOT) Alanine Aminotransferase 15 U/L (ALT/SGPT) Alkaline Phosphatase 65 U/L Total Protein 7.7 GM/DL Albumin 3.7 GM/DL Lipase 134 U/L Clue Cells (Wet Prep) NONE SEEN Vaginal Trichomonas (Wet Prep) NONE SEEN Vaginal Yeast (Wet Prep) NONE SEEN Chlamydia trachomatis DNA NOT DETECTED (PCR) Neisseria gonorrhoeae DNA NOT DETECTED (PCR) MDM Supervised Visit with RADHA: No Narrative Course Patient returned to the ED because Medicaid would not cover her prescription. She needs a script for Tramadol only. Original prescription taken and shredded. New prescription issued. No new medical issues reported. Diagnosis Primary Impression: Ovarian cyst Additional Impression: Abdominal pain Referrals: NO PRIMARY CARE PHYSICIAN (PCP) as needed Patient Instructions: General Instructions, Narcotic given in the ED, Ovarian Cyst (ED) Departure Forms: Tests/Procedures Scripts Tramadol 50 Mg Tab50 Mg PO Q4H PRN (PAIN) #15 TAB Ref 0 Prov:Ciara Paris MD 11/20/16 Fluconazole (Diflucan)150 Mg Kum518 Mg PO ONCE #1 TAB Ref 0 Prov:Hanny Davis MD 11/20/16 Ondansetron Odt (Zofran Odt)4 Mg Tab4 Mg SL Q6HR PRN (Nausea/Vomiting) #7 TAB Ref 0 Prov:Hanny Davis MD 11/20/16 Disposition: 01 DISCHARGE HOME Condition: Stable Ciara Paris MD Nov 20, 2016 10:56
== END 2016-11-20 04:50 | disposition home or self-care (01) ==
LOC: PHED 02:09
DX: N83.201 Unspecified ovarian cyst, right side (principal); F17.210 Nicotine dependence, cigarettes, uncomplicated
CPT/HCPCS: 74177; 80053; 81001; 83690; 84703; 85025; 87210; 87491; 87591; 96361; 96374; 96375; 99284; J1170; J2405; J7030; Q9967

== ENCOUNTER 2016-12-25 08:22 | Emergency (ER) | payer MEDICAID ==
[~2016-12-25] VITALS: Ht 152.4 cm; Wt 77.0 kg
[~2016-12-25 08:22] MED LIST changes: +ADVITAB3 PO; +DIFL150T PO; -METR-1 PO; +TRAM50TA PO; +ZOFR4TAB3 SL
[2016-12-25 08:27] VITALS: BP 121/65; PULSE 94; RESP 16; TEMP 98.6; O2SAT 97
[2016-12-25] MEDS ORDERED: CLIN1CAP6 PO (08:36)
[2016-12-25] MEDS ORDERED: NABU1TAB33 PO (08:36)
--- NOTE | 2016-12-25 08:37 | PD ---
HPI . Toothache Chief Complaint: Oral / Dental Pain or Problem Time Seen by Provider: 08:32 Travel History International Travel<30 days: No Contact w/Intl Traveler<30days: No Traveled to known affect area: No History of Present Illness HPI This patient presents with a chief complaint of a toothache. Onset was last night. It is a constant, achy pain which she rates 7/10. Pain has been unrelieved by ibuprofen and naproxen. No fever. She does have some associated swelling. She states that all of her teeth are bad and she knows that she needs to see a dentist but that she cannot afford one. PFSH Past Medical History Medical History: Denies Significant Hx Arthritis: No Blood Disorders: No Anxiety: No Depression: No Cancer: No Cardiovascular Problems: No Cerebrovascular Accident: No Diabetes: No Diminished Hearing: No Endocrine: No Gastrointestinal Disorders: Yes Genitourinary: Yes (Frequent UTI's) Immune Disorder: No Implanted Vascular Access Dvce: No Musculoskeletal: No Neurologic: No Psychiatric: No Reproductive: No Respiratory: No Immunizations Current: Yes Migraines: Yes Thyroid Disease: No Influenza Vaccination: No ?: Not : 6 Para: 3 Miscarriage: 2 : 1 Ovarian Cysts: Yes Tubal Ligation: Yes Past Surgical History AICD: No Arteriovenous Shunt: No Cardiac Surgery: No Section: Yes (X's 3 ) Cholecystectomy: Yes Ear Surgery: No Endocrine Surgery: No Eye Surgery: No Genitourinary Surgery: No Gynecologic Surgery: Yes (CS X's 3) Insulin Pump: No Joint Replacement: No Neurologic Surgery: No Oral Surgery: No Thoracic Surgery: No Other Surgery: Yes ( TUBAL GALLBLADDER) Social History Alcohol Use: Yes (A couple times a week) Tobacco Use: Yes (1/2 PPD) Substance Use: No Allergies-Medications (Allergen,Severity, Reaction): Coded Allergies: No Known Allergies (Unverified , 12/25/16) Reported Meds & Prescriptions Reported Meds & Active Scripts Active Tramadol (Tramadol HCl) 50 Mg Tab 50 Mg PO Q4H PRN Diflucan (Fluconazole) 150 Mg Tab 150 Mg PO ONCE Zofran Odt (Ondansetron Odt) 4 Mg Tab 4 Mg SL Q6HR PRN Reported Advil Allergy Sinus (Zdyfkrozauwgjdlq-Puutkbmpwruyxrr-Mvwghkpcv) 2-30-200 Mg Tab 1 Tab PO Q4H PRN Review of Systems Except as stated in HPI: all other systems reviewed are Neg General / Constitutional: No: Fever, Chills HENT: Positive: Dental Difficulties Physical Exam Narrative GENERAL: Awake and alert and in no acute distress. SKIN: Warm and dry. There is no swelling or erythema of the right cheek noted. HEAD: Atraumatic. Normocephalic. ENT: Teeth are in very poor repair. Tooth #12 is rotten down to the gumline and is tender to percussion. The surrounding gingival tissue is not erythematous or swollen. EYES: Pupils equal and round. NECK: Trachea midline. No cervical lymphadenopathy. CARDIOVASCULAR: Regular rate and rhythm. RESPIRATORY: No accessory muscle use. MUSCULOSKELETAL: No obvious deformities. No edema. NEUROLOGICAL: Awake and alert. No obvious cranial nerve deficits. Motor grossly within normal limits. Normal speech. PSYCHIATRIC: Appropriate mood and affect; insight and judgment normal. Data Data Last Documented VS Vital Signs Date Time Temp Pulse Resp B/P (MAP) Pulse Ox O2 Delivery O2 Flow Rate FiO2 12/25/16 08:27 98.6 94 16 121/65 (83) 97 MDM Medical Decision Making Medical Screen Exam Complete: Yes Emergency Medical Condition: Yes Differential Diagnosis Differential diagnosis of a toothache includes but is not limited to dental caries, dental abscess, gingivitis, drug-seeking behavior. Narrative Course This patient presents complaining with a toothache. She has severe dental caries. She will be treated with clindamycin and Relafen. Diagnosis Primary Impression: Odontalgia Patient Instructions: General Instructions, Toothache (ED) Scripts Clindamycin (Clindamycin) 300 Mg Cap 600 MG PO Q8H for Infection for 10 Days, CAP 0 Refills Prov: Christina Garg MD 12/25/16 Nabumetone (Nabumetone) 750 Mg Tab 750 MG PO BID for Pain-Inflammation, #60 TAB 0 Refills Prov: Christina Garg MD 12/25/16 Disposition: 01 DISCHARGE HOME Condition: Stable Christina Garg MD Dec 25, 2016 08:37
== END 2016-12-25 08:45 | disposition home or self-care (01) ==
LOC: PHED 08:22
DX: K02.9 Dental caries, unspecified (principal); F17.210 Nicotine dependence, cigarettes, uncomplicated
CPT/HCPCS: 99284

== ENCOUNTER 2017-03-08 17:16 | Emergency (ER) | payer MEDICAID ==
[~2017-03-08] VITALS: Ht 152.4 cm; Wt 80.1 kg
[~2017-03-08 17:16] MED LIST changes: -ADVITAB3 PO; +CLIN300C5 PO; -DIFL150T PO; +NABU1TAB33 PO; -TRAM50TA PO; -ZOFR4TAB3 SL
[2017-03-08 17:21] VITALS: BP 125/75; PULSE 95; RESP 18; TEMP 98.4; O2SAT 99
[2017-03-08 17:55] VITALS: BP 119/88; PULSE 87; RESP 17; O2SAT 97
--- NOTE | 2017-03-08 18:00 | PD ---
HPI Chief Complaint: Abdominal Pain Time Seen by Provider: 17:57 Travel History International Travel<30 days: No Contact w/Intl Traveler<30days: No Traveled to known affect area: No History of Present Illness HPI Patient presents with complaints of right lower abdominal pain since yesterday morning. Reports one episode of nausea and vomiting yesterday. Reports mild nausea now without vomiting. Reports urinary frequency and pain. Denies hematuria. Denies any change in bowels. History of ovarian cysts. Menses 2 weeks ago. Denies any fever. History of . PFSH Past Medical History Arthritis: No Blood Disorders: No Anxiety: No Depression: No Cancer: No Cardiovascular Problems: No Cerebrovascular Accident: No Diabetes: No Diminished Hearing: No Endocrine: No Gastrointestinal Disorders: Yes Genitourinary: Yes (Frequent UTI's) Immune Disorder: No Implanted Vascular Access Dvce: No Musculoskeletal: No Neurologic: No Psychiatric: No Reproductive: No Respiratory: No Immunizations Current: Yes Migraines: Yes Thyroid Disease: No Influenza Vaccination: No ?: Not LMP: 02/22/17 : 6 Para: 3 Miscarriage: 2 : 1 Ovarian Cysts: Yes Tubal Ligation: Yes Past Surgical History AICD: No Arteriovenous Shunt: No Cardiac Surgery: No Section: Yes (X's 3 ) Cholecystectomy: Yes Ear Surgery: No Endocrine Surgery: No Eye Surgery: No Genitourinary Surgery: No Gynecologic Surgery: Yes (CS X's 3) Insulin Pump: No Joint Replacement: No Neurologic Surgery: No Oral Surgery: No Thoracic Surgery: No Other Surgery: Yes ( TUBAL GALLBLADDER) Social History Alcohol Use: Yes (A couple times a week) Tobacco Use: Yes (1/2 PPD) Substance Use: No Allergies-Medications (Allergen,Severity, Reaction): Coded Allergies: Penicillins (Verified Adverse Reaction, Intermediate, Itching, 03/08/17) Reported Meds & Prescriptions Reported Meds & Active Scripts Active Review of Systems General / Constitutional: No: Fever Eyes: No: Visual changes HENT: No: Headaches Cardiovascular: No: Chest Pain or Discomfort Respiratory: No: Shortness of Breath Gastrointestinal: Positive: Abdominal Pain Genitourinary: No: Dysuria Musculoskeletal: No: Pain Skin: No Rash Neurologic: No: Weakness Psychiatric: No: Depression Endocrine: No: Polydipsia Hematologic/Lymphatic: No: Easy Bruising Physical Exam Narrative GENERAL: Well-nourished, well-developed patient. SKIN: Focused skin assessment warm/dry. HEAD: Normocephalic. EYES: No scleral icterus. No injection or drainage. NECK: Supple, trachea midline. No JVD or lymphadenopathy. CARDIOVASCULAR: Regular rate and rhythm without murmurs, gallops, or rubs. RESPIRATORY: Breath sounds equal bilaterally. No accessory muscle use. GASTROINTESTINAL: Abdomen soft, mildly tender right lower quadrant, nondistended. MUSCULOSKELETAL: No cyanosis, or edema. BACK: Nontender without obvious deformity. No CVA tenderness. Data Data Last Documented VS Vital Signs Date Time Temp Pulse Resp B/P (MAP) Pulse Ox O2 Delivery O2 Flow Rate FiO2 03/08/17 17:21 98.4 95 18 125/75 (92) 99 Orders Orders Urinalysis - C+S If Indicated (03/08/17 17:57) Labs Laboratory Tests Test 03/08/17 18:15 Urine Color YELLOW Urine Turbidity CLEAR Urine pH 7.[address] Specific [place] 1.010 Urine Protein NEG mg/dL Urine Glucose (UA) NEG mg/dL Urine Ketones NEG mg/dL Urine Occult Blood SMALL Urine Nitrite NEG Urine Bilirubin NEG Urine Leukocyte Esterase NEG Urine Squamous Epithelial Cells 0-5 /hpf Microscopic Urinalysis Comment CULT NOT INDICATED MDM Medical Decision Making Medical Screen Exam Complete: Yes Emergency Medical Condition: Yes Differential Diagnosis UTI, ovarian cyst, adhesions Narrative Course Assessment and plan discussed with patient at bedside. Urinalysis is not significant. More detailed workup warranted. Physician Communication Physician Communication Case discussed and care transferred to Clarke Ramsey MD Mar 08, 2017 18:00
[2017-03-08 18:30] LABS: BLOOD, URINE SMALL (NEG); GLUCOSE,URINE NEG (NEG); KETONE, URINE NEG (NEG); NITRITE,URINE NEG (NEG)
[2017-03-08 18:42] LABS: URINE COLOR YELLOW (YELLW/STRAW)
[2017-03-08 18:43] LABS: COMMENT (UR) CULT NOT INDICATED; CULTURE IF INDICATED CULT NOT INDICATED; SQUAMOUS EPITHELIAL CELL URINE 0-5 /hpf (0-5)
[2017-03-08] MEDS ORDERED: ONDANSETRON HCL 4 MG/2 ML VIAL IVP ONE (19:00)
[2017-03-08] MEDS ORDERED: SODIUM CHLORIDE 0.9% FLUSH 10 ML FLUSH IV FLUSH PRN (19:00)
[2017-03-08] MEDS ORDERED: MORPHINE SULFATE 4 MG/ML INJ IV PUSH ONE (19:00)
[2017-03-08 19:10] VITALS: BP 115/72; PULSE 81; RESP 16; O2SAT 96
[2017-03-08 19:12] LABS: AUTOMATED NEUTROPHIL # 5.1 TH/MM3 (1.8-7.7); BASOPHIL % 0.4 % (0.0-2.0); EOSINOPHIL # 0.1 TH/MM3 (0-0.4); EOSINOPHIL % 1.8 % (0.0-4.0); HEMATOCRIT 34.8 % (35.0-46.0); HEMO FLAGS DIFF FINAL; LYMPH % 29.7 % (9.0-44.0); LYMPHOCYTE # 2.4 TH/MM3 (1.0-4.8); MEAN CORPUSCULAR HEMOGLOBIN 31.1 PG (27.0-34.0); MEAN CORPUSCULAR HGB CONC 33.4 % (32.0-36.0); MONO % 5.4 % (0.0-8.0); NEUT % 62.7 % (16.0-70.0); PLATELET COUNT 332 TH/MM3 (150-450); RED BLOOD COUNT 3.74 MIL/MM3 (4.00-5.30); RED CELL DISTRIBUTION WIDTH 13.2 % (11.6-17.2)
[2017-03-08 19:13] VITALS: RESP 16
[2017-03-08 19:19] LABS: CHLORIDE 108 MEQ/L (98-107); POTASSIUM 3.7 MEQ/L (3.5-5.1); SODIUM (NA) 141 MEQ/L (136-145)
[2017-03-08] MEDS ORDERED: IOHEXOL 350 MG/ML 10 ML VIAL (for RAD DIAG) IVCONTRAST ONE (19:20)
[2017-03-08 19:23] LABS: ANION GAP 7 MEQ/L (5-15); BICARBONATE 26.4 MEQ/L (21.0-32.0); BLOOD UREA NITROGEN 10 MG/DL (7-18)
[2017-03-08 19:26] LABS: ALT (GPT) 19 U/L (10-53); AST (GOT) 10 U/L (15-37); GLOMERULAR FILTRATION RATE 94 ML/MIN (>89)
[2017-03-08 19:28] LABS: TOTAL BILIRUBIN ADULT 0.2 MG/DL (0.2-1.0)
[2017-03-08 19:29] LABS: ALKALINE PHOSPHATASE 62 U/L (45-117)
[2017-03-08 19:31] LABS: BETA HCG QUANT LESS THAN 1 MIU/ML (0-5)
--- NOTE | 2017-03-08 19:36 | RADRPT ---
EXAM DATE/TIME: 03/08/2017 19:15 [facility] COMPARISON: CT ABDOMEN & PELVIS W CONTRAST, November 20, 2016, 3:08. INDICATIONS : Right lower quadrant pain. IV CONTRAST: 96 cc Omnipaque 350 (iohexol) IV ORAL CONTRAST: No oral contrast ingested. RADIATION DOSE: 9.65 CTDIvol (mGy) MEDICAL HISTORY : UTI, ovaruian cysts, scoliosis SURGICAL HISTORY : Cholecystectomy. section.Tubal ligation. ENCOUNTER: Initial ACUITY: 1 day PAIN SCALE: 7/10 LOCATION: Right lower quadrant TECHNIQUE: Volumetric scanning of the abdomen and pelvis was performed. Using automated exposure control and ad justment of the mA and/or kV according to patient size, radiation dose was kept as low as reasonably achievable to obtain optimal diagnostic quality images. DICOM format image data is available electro nically for review and comparison. FINDINGS: LOWER LUNGS: The visualized lower lungs are clear. LIVER: Homogeneous density without lesion. There is no dilation of the biliary tree. Previous cholecystecto my. SPLEEN: Normal size without lesion. PANCREAS: Within normal limits. KIDNEYS: Normal in size and shape. A couple tiny benign cysts on both sides. There is no solid mass, stone or hydronephrosis. ADRENAL GLANDS: Within normal limits. VASCULAR: There is no aortic aneurysm. BOWEL/MESENTERY: The stomach, small bowel, and colon demonstrate no acute abnormality. There is no free intraperitone al air or fluid. Appendix well visualized, normal. ABDOMINAL WALL: Within normal limits. RETROPERITONEUM: There is no lymphadenopathy. BLADDER: No wall thickening or mass. REPRODUCTIVE: 15 mm right ovarian cyst. No free fluid. INGUINAL: There is no lymphadenopathy or hernia. MUSCULOSKELETAL: No acute bony abnormality demonstrated. There is mild S-shaped curvature of the thoracolumbar spine. CONCLUSION: 1. Small right ovarian cyst. 2. Otherwise negative. Normal appendix. No free fluid. 3. Previous cholecystectomy. Evearrdo Johnson MD on March 08, 2017 at 19:33 Board Certified Radiologist. This report was verified electronically.
[2017-03-08] MEDS ORDERED: PROC10TA PO (19:52)
[2017-03-08] MEDS ORDERED: HYDR-3516 PO (19:52)
--- NOTE | 2017-03-08 19:53 | PD ---
Physical Exam Time Seen by Provider: 19:[address] Demarco left this patient with me to check the CT and laboratory work and make a disposition. GENITOURINARY: Normal external genitalia without lesions or erythema. Vaginal vault without blood or drainage. Cervical os was closed without drainage. No cervical motion tenderness. Uterus nontender and nonenlarged. Bilateral adnexa nontender without masses. Data Data Last Documented VS Vital Signs Date Time Temp Pulse Resp B/P (MAP) Pulse Ox O2 Delivery O2 Flow Rate FiO2 03/08/17 19:13 16 03/08/17 19:10 81 115/72 (86) 96 Room Air 03/08/17 17:21 98.4 Orders Orders Urinalysis - C+S If Indicated (03/08/17 17:57) Beta Hcg (Quant/Titer) (03/08/17 18:48) Complete Blood Count With Diff (03/08/17 18:48) Comprehensive Metabolic Panel (03/08/17 18:48) Lactic Acid (03/08/17 18:48) Ct Abd/Pel W Iv Contrast(Rout) (03/08/17 18:48) Iv Access Insert/Monitor (03/08/17 18:48) Ecg Monitoring (03/08/17 18:48) Oximetry (03/08/17 18:48) Ondansetron Inj (Zofran Inj) (03/08/17 19:00) Sodium Chloride 0.9% Flush (Ns Flush) (03/08/17 19:00) Morphine Inj (Morphine Inj) (03/08/17 19:00) Iohexol 350 Inj (Omnipaque 350 Inj) (03/08/17 19:20) Labs Laboratory Tests Test 03/08/17 18:15 03/08/17 18:58 Urine Color YELLOW Urine Turbidity CLEAR Urine pH 7.0 Urine Specific [place] 1.010 Urine Protein NEG mg/dL Urine Glucose (UA) NEG mg/dL Urine Ketones NEG mg/dL Urine Occult Blood SMALL Urine Nitrite NEG Urine Bilirubin NEG Urine Leukocyte Esterase NEG Urine Squamous Epithelial Cells 0-5 /hpf Microscopic Urinalysis Comment CULT NOT INDICATED White Blood Count 8.0 TH/MM3 Red Blood Count 3.74 MIL/MM3 Hemoglobin 11.6 GM/DL Hematocrit 34.8 % Mean Corpuscular Volume 93.0 FL Mean Corpuscular Hemoglobin 31.1 PG Mean Corpuscular Hemoglobin Concent 33.4 % Red Cell Distribution Width 13.2 % Platelet Count 332 TH/MM3 Mean Platelet Volume 7.6 FL Neutrophils (%) (Auto) 62.7 % Lymphocytes (%) (Auto) 29.7 % Monocytes (%) (Auto) 5.4 % Eosinophils (%) (Auto) 1.8 % Basophils (%) (Auto) 0.4 % Neutrophils # (Auto) 5.1 TH/MM3 Lymphocytes # (Auto) 2.4 TH/MM3 Monocytes # (Auto) 0.4 TH/MM3 Eosinophils # (Auto) 0.1 TH/MM3 Basophils # (Auto) 0.0 TH/MM3 CBC Comment DIFF FINAL Differential Comment Blood Urea Nitrogen 10 MG/DL Creatinine 0.71 MG/DL Random Glucose 89 MG/DL Total Protein 7.2 GM/DL Albumin 3.4 GM/DL Calcium Level 8.2 MG/DL Alkaline Phosphatase 62 U/L Aspartate Amino Transf (AST/SGOT) 10 U/L Alanine Aminotransferase (ALT/SGPT) 19 U/L Total Bilirubin 0.2 MG/DL Sodium Level 141 MEQ/L Potassium Level 3.7 MEQ/L Chloride Level 108 MEQ/L Carbon Dioxide Level 26.4 MEQ/L Anion Gap 7 MEQ/L Estimat Glomerular Filtration Rate 94 ML/MIN Lactic Acid Level 0.6 mmol/L Human Chorionic Gonadotropin, Quant LESS THAN 1 MIU/ML [facility] Medical Record Reviewed: Yes Supervised Visit with RADHA: Yes Interpretation(s) The CT abdomen pelvis shows a small right ovarian cyst but is otherwise normal and the appendix is normal. There is no free fluid present. The urinalysis shows small occult blood but is otherwise normal and culture is not indicated. The complete metabolic profile is normal. The beta-hCG is less than 1. The lactic acid is normal. The CBC is normal. Differential Diagnosis Acute appendicitis, ovarian cyst, diverticulitis, colitis, electrolyte disorder , anemia, PID, UTI Narrative Course The appendix is normal and the CT. The blood work is normal as well. The urine has slight amount of blood in but is otherwise unremarkable. At this time is abdominal pain etiology undetermined. The pelvic exam showed no cervical tenderness. Impression: Abdominal pain etiology undetermined Plan: The patient be given Lortab 5 as well as Compazine. She should follow-up with her primary care physician next week. Diagnosis Primary Impression: Abdominal pain of unknown etiology Med/Other Pt SpecificInfo: Prescription(s) given Scripts Prochlorperazine Maleate (Prochlorperazine Maleate) 10 Mg Tab 10 MG PO Q6H Y for NAUSEA OR VOMITING, #28 TAB 0 Refills Prov: Garrick Light MD 03/08/17 Hydrocodone-Acetaminophen (Hydrocodone-Acetaminophen) 5-325 mg Tab 1 TAB PO Q4H Y for PAIN, #21 TAB 0 Refills Prov: Garrick Light MD 03/08/17 Disposition: 01 DISCHARGE HOME Condition: Stable Garrick Light MD Mar 08, 2017 19:52
== END 2017-03-08 20:15 | disposition home or self-care (01) ==
LOC: PHED 17:16
DX: R10.9 Unspecified abdominal pain (principal); N83.201 Unspecified ovarian cyst, right side; F17.210 Nicotine dependence, cigarettes, uncomplicated; Z88.0 Allergy status to penicillin
CPT/HCPCS: 74177; 80053; 81001; 83605; 84702; 85025; 96374; 96375; 99285; J2270; J2405; Q9967

== ENCOUNTER 2017-06-06 17:55 | Emergency (ER) | payer SELFPAY ==
[~2017-06-06] VITALS: Ht 152.4 cm; Wt 82.7 kg
[~2017-06-06 17:55] MED LIST changes: -CLIN300C5 PO; +HYDR-3516 PO; -NABU1TAB33 PO; +PROC10TA PO
[2017-06-06 18:03] VITALS: BP 122/77; PULSE 93; RESP 16; TEMP 98.3; O2SAT 98
[2017-06-06] MEDS ORDERED: IBUP1TAB7 PO (18:26)
[2017-06-06] MEDS ORDERED: CLIN150C14 PO (18:26)
[2017-06-06] MEDS ORDERED: PERI0.126 SWISH-SPIT (18:26)
--- NOTE | 2017-06-06 18:27 | PD ---
HPI Chief Complaint: Oral / Dental Pain or Problem Time Seen by Provider: 18:22 Travel History International Travel<30 days: No Contact w/Intl Traveler<30days: No Traveled to known affect area: No History of Present Illness HPI 37-year-old female presents to the emergency Department with complaint of left lower dental pain since Friday with worsening. Says she has bad teeth. Denies fever, vomiting. Denies throat pain, difficulty swallowing, unusual drooling. Pain radiates to her left ear. Has been taking ibuprofen for symptom management. Rates pain 10/28. Describes it as a throbbing, aching sensation. No known aggravating or relieving factors. Denies significant past medical history. No primary care provider. Does not have a dentist she can follow-up. Allergies to penicillins. Has no other medical complaints. No other modifying factors or associated signs and symptoms. PFSH Past Medical History Arthritis: No Blood Disorders: No Anxiety: No Depression: No Cancer: No Cardiovascular Problems: No Cerebrovascular Accident: No Diabetes: No Diminished Hearing: No Endocrine: No Gastrointestinal Disorders: Yes Genitourinary: Yes (Frequent UTI's) Immune Disorder: No Implanted Vascular Access Dvce: No Musculoskeletal: No Neurologic: No Psychiatric: No Reproductive: No Respiratory: No Immunizations Current: Yes Migraines: Yes Thyroid Disease: No ?: Not : 6 Para: 3 Miscarriage: 2 : 1 Ovarian Cysts: Yes Tubal Ligation: Yes Past Surgical History AICD: No Arteriovenous Shunt: No Cardiac Surgery: No Section: Yes (X's 3 ) Cholecystectomy: Yes Ear Surgery: No Endocrine Surgery: No Eye Surgery: No Genitourinary Surgery: No Gynecologic Surgery: Yes (CS X's 3) Insulin Pump: No Joint Replacement: No Neurologic Surgery: No Oral Surgery: No Thoracic Surgery: No Other Surgery: Yes ( TUBAL GALLBLADDER) Social History Alcohol Use: Yes (A couple times a week) Tobacco Use: Yes (1/2 PPD) Substance Use: No Allergies-Medications (Allergen,Severity, Reaction): Coded Allergies: Penicillins (Verified Adverse Reaction, Intermediate, Itching, 06/06/17) Reported Meds & Prescriptions Reported Meds & Active Scripts Active Ibuprofen 800 Mg Tab 800 Mg PO Q6HR PRN Peridex Liq (Chlorhexidine Gluconate (Mouth) Liq) 0.12% Soln 15 Ml SWISH-SPIT BID 10 Days Clindamycin (Clindamycin HCl) 150 Mg Cap 450 Mg PO Q6H 10 Days Review of Systems Except as stated in HPI: all other systems reviewed are Neg Physical Exam Narrative GENERAL: Well-nourished, well-developed female patient, in no acute distress; afebrile, nontoxic-appearing SKIN: Warm and dry. HEAD: Atraumatic. Normocephalic. No facial edema, erythema, tenderness on palpation. No lymphadenopathy. EYES: Pupils equal and round. No scleral icterus. No injection or drainage. ENT: Mucosa pink and moist. No erythema or exudates. No uvular edema. No uvular , palatal, or tonsillar deviation. Airway patent. EARS: Bilateral pinnae and external canals appear within normal limits. Bilateral tympanic membranes without erythema, dullness or perforation. MOUTH: Mucous membranes moist, no lesions, tongue and gums appear normal. Her dentition throughout with multiple dental cavities and some edentulous. Left lower third molar with tenderness on palpation; tooth with large dental cavity noted and decay. Surrounding gingiva is without erythema, edema, drainage. No obvious abscess noted. NECK: Trachea midline. No lymphadenopathy. CARDIOVASCULAR: Regular rate. RESPIRATORY: No accessory muscle use. GASTROINTESTINAL: Rounded. MUSCULOSKELETAL: No obvious deformities. No clubbing. No cyanosis. No edema. NEUROLOGICAL: Awake and alert. Oriented 3. No obvious cranial nerve deficits. Motor grossly within normal limits. Normal speech. PSYCHIATRIC: Appropriate mood and affect; insight and judgment normal. Data Data Last Documented VS Vital Signs Date Time Temp Pulse Resp B/P (MAP) Pulse Ox O2 Delivery O2 Flow Rate FiO2 06/06/17 18:03 98.3 93 16 122/77 (92) 98 Orders Orders Ketorolac Inj (Toradol Inj) (06/06/17 18:30) Ed Discharge Order (06/06/17 18:27) [facility] Medical Decision Making Medical Screen Exam Complete: Yes Emergency Medical Condition: Yes Medical Record Reviewed: Yes Differential Diagnosis Dentalgia, dental abscess, infected dental caries, gingivitis Narrative Course 37-year-old female with dentalgia and dental cavity to left lower wisdom tooth. No facial edema, erythema. Patient is afebrile and nontoxic-appearing. Denies fever, vomiting. Patient provided a emergency dental information sheet for follow-up. Instructed patient to follow up with dentist. Clindamycin, Peridex mouth rinse, ibuprofen prescribed for home. Toradol administered prior to discharge. Instructed patient to follow up with primary care provider. Patient verbalizes understanding and agreement with treatment plan. Patient is medically cleared and stable for discharge. Discussed reasons to return to the emergency department. Patient agrees with treatment plan. The patients vital signs are stable and the patient is stable for outpatient follow-up and treatment. Patient discharged home, stable and in no acute distress. Diagnosis Primary Impression: Dentalgia Additional Impression: Dental cavities Referrals: Dentist Primary Care Physician Patient Instructions: Dental Abscess (ED), Dental Caries (ED), General Instructions, Toothache (ED) Departure Forms: Tests/Procedures Additional Instructions: Complete full course of antibiotics; clindamycin is approximately $20 at [facility] pharmacy if you do not have insurance Ibuprofen or Tylenol as directed and as needed to reduce pain and inflammation Use Peridex as directed for oral hygiene Warm or cool compresses to the affected area Follow-up with dentist Follow-up with primary care provider Return to emergency department immediately with worsening of symptoms Med/Other Pt SpecificInfo: Prescription(s) given Scripts Ibuprofen (Ibuprofen) 800 Mg Tab 800 MG PO Q6HR Y for PAIN, #30 TAB 0 Refills Prov: Lita Conley 06/06/17 Chlorhexidine Gluconate (Mouth) Liq (Peridex Liq) 0.12% Soln 15 ML SWISH-SPIT BID for 10 Days, #300 ML 0 Refills Prov: Lita Conley 06/06/17 Clindamycin (Clindamycin) 150 Mg Cap 450 MG PO Q6H for Infection for 10 Days, #120 CAP 0 Refills Prov: Lita Conley 06/06/17 Disposition: 01 DISCHARGE HOME Condition: Stable Lita Conley Jun 06, 2017 18:27
[2017-06-06] MEDS ORDERED: KETOROLAC TROMETHAMINE 60 MG/2 ML (IM) VIAL IM ONE (18:30)
== END 2017-06-06 18:37 | disposition home or self-care (01) ==
LOC: PHEFT 17:55
DX: K08.89 Other specified disorders of teeth and supporting structures (principal); K02.9 Dental caries, unspecified; F17.200 Nicotine dependence, unspecified, uncomplicated
CPT/HCPCS: 96372; 99283; J1885

== ENCOUNTER 2017-08-08 09:12 | Emergency (ER) | payer MEDICAID ==
[~2017-08-08] VITALS: Ht 152.4 cm; Wt 80.0 kg
[~2017-08-08 09:12] MED LIST changes: +CLIN150C14 PO; -HYDR-3516 PO; +IBUP1TAB7 PO; +PERI0.126 SWISH-SPIT; -PROC10TA PO
[2017-08-08 09:15] VITALS: BP 118/62; PULSE 88; RESP 16; TEMP 97.8; O2SAT 100
[2017-08-08] MEDS ORDERED: PENI500T PO (09:36)
[2017-08-08] MEDS ORDERED: IBUP1TAB7 PO (09:36)
[2017-08-08] MEDS ORDERED: DIFL150T PO (09:37)
--- NOTE | 2017-08-08 09:39 | PD ---
HPI Chief Complaint: Oral / Dental Pain or Problem Time Seen by Provider: 09:22 Travel History International Travel<30 days: No Contact w/Intl Traveler<30days: No Traveled to known affect area: No History of Present Illness HPI 37-year-old female here with dental pain 2 weeks. She reports for the last 2 days she noticed gum swelling at the site of a decayed and fractured tooth. Denies fever or chills. Reports constant, throbbing pain in the left upper bicuspid. Symptom severity is moderate. Aggravated by heat, cold, chewing. Slightly relieved with OTC Tylenol and ibuprofen. PFSH Past Medical History Arthritis: No Blood Disorders: No Anxiety: No Depression: No Cancer: No Cardiovascular Problems: No Cerebrovascular Accident: No Diabetes: No Diminished Hearing: No Endocrine: No Gastrointestinal Disorders: Yes Genitourinary: Yes (Frequent UTI's) Immune Disorder: No Implanted Vascular Access Dvce: No Musculoskeletal: No Neurologic: No Psychiatric: No Reproductive: No Respiratory: No Immunizations Current: Yes Migraines: Yes Thyroid Disease: No Tetanus Vaccination: > 5 Years ?: Not (Not sexually active) : 6 Para: 3 Miscarriage: 2 : 1 Ovarian Cysts: Yes Tubal Ligation: Yes Past Surgical History AICD: No Arteriovenous Shunt: No Cardiac Surgery: No Section: Yes (X's 3 ) Cholecystectomy: Yes Ear Surgery: No Endocrine Surgery: No Eye Surgery: No Genitourinary Surgery: No Gynecologic Surgery: Yes (CS X's 3) Insulin Pump: No Joint Replacement: No Neurologic Surgery: No Oral Surgery: No Thoracic Surgery: No Other Surgery: Yes ( TUBAL GALLBLADDER) Social History Alcohol Use: Yes (A couple times a week) Tobacco Use: Yes (1/2 PPD) Substance Use: No Allergies-Medications (Allergen,Severity, Reaction): Coded Allergies: No Known Drug Allergies (Verified Allergy, Unknown, 08/08/17) Reported Meds & Prescriptions Reported Meds & Active Scripts Active Diflucan (Fluconazole) 150 Mg Tab 150 Mg PO ONCE Penicillin V Potassium 500 Mg Tab 500 Mg PO Q6H 7 Days Ibuprofen 800 Mg Tab 800 Mg PO Q6HR PRN Review of Systems Except as stated in HPI: all other systems reviewed are Neg General / Constitutional: No: Fever Eyes: No: Visual changes HENT: No: Headaches Cardiovascular: No: Chest Pain or Discomfort Respiratory: No: Shortness of Breath Gastrointestinal: No: Abdominal Pain Physical Exam Narrative GENERAL: Alert and well-appearing 37-year-old female SKIN: Warm and dry. HEAD: Normocephalic. EYES: No injection or drainage. MOUTH: Widespread dental decay. Decayed/fracture left upper bicuspid with surrounding gum erythema. No swelling of the floor the mouth. Uvula is midline. Airways patent. Normal phonation. NECK: Supple, trachea midline. No JVD or lymphadenopathy. CARDIOVASCULAR: Regular rate and rhythm RESPIRATORY: Breath sounds equal bilaterally. No accessory muscle use. GASTROINTESTINAL: nondistended. MUSCULOSKELETAL: No cyanosis, or edema. Data Data Last Documented VS Vital Signs Date Time Temp Pulse Resp B/P (MAP) Pulse Ox O2 Delivery O2 Flow Rate FiO2 08/08/17 09:15 97.8 88 16 118/62 (80) 100 MDM Medical Decision Making Medical Screen Exam Complete: Yes Emergency Medical Condition: Yes Differential Diagnosis Dental caries, dental infection, dental abscess Narrative Course 37-year-old female here with dental pain. She is nontoxic appearing. Vital signs stable. She will be treated with antibiotics and instructed to take OTC NSAIDs. At discharge patient is reporting she gets yeast infections each time she takes antibiotics. She will be given a prescription for Diflucan. She reports NO possibility of as she is not sexually active. Diagnosis Primary Impression: Dental infection Referrals: Dentist Additional Instructions: Antibiotics as directed. [id number] ibuprofen 800 mg every 6 hours as needed for pain. Diflucan as directed for yeast infection Scripts Fluconazole (Diflucan) 150 Mg Tab 150 MG PO ONCE for Infection, #1 TAB 0 Refills Prov: Cherie Ambrose 08/08/17 Penicillin V Potassium (Penicillin V Potassium) 500 Mg Tab 500 MG PO Q6H for Infection for 7 Days, #28 TAB 0 Refills Prov: Cherie AmbroseP 08/08/17 Ibuprofen (Ibuprofen) 800 Mg Tab 800 MG PO Q6HR Y for PAIN, #30 TAB 0 Refills Prov: Cherie AmbroseP 08/08/17 Disposition: 01 DISCHARGE HOME Condition: Stable Cherie Ambrose Aug 08, 2017 09:39
== END 2017-08-08 09:46 | disposition home or self-care (01) ==
LOC: PHEFT 09:12
DX: K04.7 Periapical abscess without sinus (principal); F17.200 Nicotine dependence, unspecified, uncomplicated; Z87.440 Personal history of urinary (tract) infections
CPT/HCPCS: 99283

== ENCOUNTER 2017-08-26 12:41 | Emergency (ER) | payer MEDICAID ==
[~2017-08-26] VITALS: Ht 152.4 cm; Wt 73.0 kg
[~2017-08-26 12:41] MED LIST changes: -CLIN150C14 PO; +DIFL150T PO; +PENI500T PO; -PERI0.126 SWISH-SPIT
[2017-08-26 12:50] VITALS: BP 122/70; PULSE 81; RESP 16; TEMP 98.1; O2SAT 98
[2017-08-26] MEDS ORDERED: CLIN300C5 PO (14:00)
--- NOTE | 2017-08-26 14:08 | PD ---
HPI Chief Complaint: Oral / Dental Pain or Problem Time Seen by Provider: 13:42 Travel History International Travel<30 days: No Contact w/Intl Traveler<30days: No Traveled to known affect area: No History of Present Illness HPI 37-year-old female presents to the emergency room for evaluation of right lower dental pain and swelling for the past 3 days. Patient states pain started severely 3 days ago but the swelling did not start until yesterday. She has been taking ibuprofen without any relief in symptoms. She came to the emergency room about 2 weeks ago for the same and was given penicillin. States her symptoms improved while on the medication but when she stopped, they returned. Patient states she got dental insurance on August 19 and has not been able to find a dentist yet. She denies any fever, chills, nausea, or vomiting. No chronic medical conditions to the medications. Denies possibility of . PFSH Past Medical History Arthritis: No Blood Disorders: No Anxiety: No Depression: No Cancer: No Cardiovascular Problems: No Cerebrovascular Accident: No Diabetes: No Diminished Hearing: No Endocrine: No Gastrointestinal Disorders: Yes Genitourinary: Yes (Frequent UTI's) Immune Disorder: No Implanted Vascular Access Dvce: No Musculoskeletal: No Neurologic: No Psychiatric: No Reproductive: No Respiratory: No Immunizations Current: Yes Migraines: Yes Thyroid Disease: No ?: Not LMP: 07/2017 : 6 Para: 3 Miscarriage: 2 : 1 Ovarian Cysts: Yes Tubal Ligation: Yes Past Surgical History AICD: No Arteriovenous Shunt: No Cardiac Surgery: No Section: Yes (X's 3 ) Cholecystectomy: Yes Ear Surgery: No Endocrine Surgery: No Eye Surgery: No Genitourinary Surgery: No Gynecologic Surgery: Yes (CS X's 3) Insulin Pump: No Joint Replacement: No Neurologic Surgery: No Oral Surgery: No Thoracic Surgery: No Other Surgery: Yes ( TUBAL GALLBLADDER) Social History Alcohol Use: Yes (A couple times a week) Tobacco Use: Yes (1/2 PPD) Substance Use: No Allergies-Medications (Allergen,Severity, Reaction): Coded Allergies: penicillin G (Verified Allergy, Severe, hives, 08/26/17) Reported Meds & Prescriptions Reported Meds & Active Scripts Active Diflucan (Fluconazole) 150 Mg Tab 150 Mg PO ONCE Penicillin V Potassium 500 Mg Tab 500 Mg PO Q6H 7 Days Ibuprofen 800 Mg Tab 800 Mg PO Q6HR PRN Review of Systems Except as stated in HPI: all other systems reviewed are Neg Physical Exam Narrative GENERAL: Well-nourished, well-developed female in no acute distress. Afebrile. A . SKIN: Focused skin assessment warm/dry. HEAD: Normocephalic. EYES: No scleral icterus. No injection or drainage. DENTAL: Moderate decay throughout. No malocclusion. Mild right lower jaw edema. No submental, submandibular, or buccal induration. No drainage. There is a erythematous lesion on the right, lower, back gingiva without any drainage. It is extremely tender to palpation. NECK: Supple, trachea midline. No JVD or lymphadenopathy. CARDIOVASCULAR: Regular rate and rhythm without murmurs, gallops, or rubs. RESPIRATORY: Breath sounds equal bilaterally. No accessory muscle use. Data Data Last Documented VS Vital Signs Date Time Temp Pulse Resp B/P (MAP) Pulse Ox O2 Delivery O2 Flow Rate FiO2 08/26/17 12:50 98.1 81 16 122/70 (87) 98 MDM Medical Decision Making Medical Screen Exam Complete: Yes Emergency Medical Condition: Yes Medical Record Reviewed: Yes Differential Diagnosis Chronic dental pain, gingivitis, dental fracture, dental abscess Narrative Course 37-year-old female presents to the emergency room for evaluation of dental pain for the past several days. Patient has been to the emergency room 2 times this year for the same complaint. States improves with antibiotics and returns. She got insurance on August 19 and plans to follow-up with a dentist. Physical exam reveals moderate decay throughout. No malocclusion. Mild right lower jaw edema. No submental, submandibular, or buccal induration. No drainage. There is a erythematous lesion on the right, lower, back gingiva without any drainage. It is extremely tender to palpation. She will be discharged with prescription for clindamycin and told to follow-up with primary care physician within the emergency room for worsening symptoms. She understands and agrees to plan. Diagnosis Primary Impression: Dental abscess Referrals: Primary Care Physician Additional Instructions: Rest and drink plenty of fluids. Ibuprofen as directed, as needed for pain. Clindamycin as directed, until gone. Follow-up with your dentist. Return to the emergency room for worsening symptoms. Scripts Clindamycin (Clindamycin) 300 Mg Cap 300 MG PO Q6H for Infection for 7 Days, #28 CAP 0 Refills Prov: Kwabena Maria MD 08/26/17 Disposition: 01 DISCHARGE HOME Condition: Stable Esperanza Monroe August 26, 2017 14:08
== END 2017-08-26 14:24 | disposition home or self-care (01) ==
LOC: NEPK 12:41
DX: K04.7 Periapical abscess without sinus (principal); F17.200 Nicotine dependence, unspecified, uncomplicated
CPT/HCPCS: 99283